=== PATIENT | male | born 1955 | race Caucasian/White ===

== ENCOUNTER 2024-10-10 09:08 | Outpatient (CLI) | payer MEDICARE, SELFPAY ==
--- OUTSIDE RECORDS SUMMARY | 2024-10-10 10:07 | XMS_ITS | Data Portability ---
Author Organization [facility] [employer] Address [address] [place] [address] Care Team Providers Care Sales Enablement Specialist Name Role Phone ALEJANDRA GARBER Director Of Nurses Registry Assessment Encounter Date Assessment Date Assessment LastModified by Organization Details LastModified Time 06/01/2023 06/01/2023 Patient presented for follow up. Studies ordered as below. Discussed plan with patient/careg iver, who expressed understanding . Follow up as noted below. Not available 06/01/2023 14:07:30 06/27/2023 06/27/2023 Patient presented for follow up. Studies ordered as below. Discussed plan with patient/careg iver, who expressed understanding . Follow up as noted below. Not available 06/27/2023 15:26:04 08/02/2023 08/02/2023 Patient presented for follow up. Studies ordered as below. Discussed plan with patient/careg iver, who expressed understanding . Follow up as noted below. Not available 08/02/2023 12:58:43 10/04/2023 10/04/2023 Patient presented for follow up. Studies ordered as below. Discussed plan with patient/careg iver, who expressed understanding . Follow up as noted below. Not available 10/04/2023 18:27:07 03/20/2024 03/20/2024 Patient presented for follow up. Studies ordered as below. Discussed plan with patient/careg iver, who expressed understanding . Follow up as noted below. Not available 03/20/2024 17:02:47 Plan of Treatment Reminders Order Date Submit Date Provider Last Modified By Organization Details Last Modified Time Details Appointments ESTABLISH ED PATIENT 15 2024 09:00A M Mele Crump MD Not available Not available Not available Lab hemoglobi n A1C/hemog lobin total, QN, blood 2022 024 Not available 11/03/2023 14:44:14 BMP, serum or plasma 2022 023 BLADIMIR Not available 08/03/2023 14:44:43 lipid panel, blood 2022 024 Not available 11/03/2023 14:44:14 CMP, serum or plasma 2022 024 Not available 11/03/2023 14:44:14 PSA, serum or plasma 2022 023 BLADIMIR Not available 08/03/2023 14:44:43 microalbu min/creat inine, mass ratio, urine 2022 024 Not available 11/03/2023 14:44:15 Referral cardiolog ist referral [address] [facility], [address], [address], 08/31/2023 14:42:41 Procedures None recorded. Surgeries None recorded. Imaging None recorded. Medication Orders tobramyci n 0.3 % eye drops 2023 024 [facility]acy #[id number], [address] [place], [address], 03/20/2024 17:27:37 metformin ER 500 mg tablet,ex tended release 24 hr [address]/Pharmacy #9650, [address] [place], [address], 08/02/2023 13:03:07 valacyclo vir 1 gram tablet [address]/Pharmacy #9170, [address] [place] [address], [address], 08/02/2023 13:04:24 Horizant ER 600 mg tablet,ex tended release 2022 023 [address] [place] [address], [address], 08/02/2023 13:03:03 valacyclo vir 1 gram tablet 2022 023 [facility] [address] [place] [address], [id number], 06/27/2023 15:39:52 Horizant ER 600 mg tablet,ex tended release 2022 023 [address], [address] [place] [address], [id number], 06/27/2023 15:39:48 metformin ER 500 mg tablet,ex tended release 24 hr 2022 023 [facility] [address] [place] [address], [address], 06/27/2023 15:39:51 Patient TargetsNo targets recorded. Patient Instructions Encounter Date Encounter Id Patient Instructions Last Modified By Organization Details Last Modified Time 06/27/2023 [id number] advised to lose weight Not available 06/27/2023 15:39:48 08/02/2023 [id number] advised to lose weight Not available 08/02/2023 13:03:03 03/20/2024 [id number] advised to lose weight Not available 03/20/2024 17:27:28 Reason for Referral Director Of Nurses Registry Referral for At herosclerosis of aorta Referring Physician: Mele Crump, Internal Medicine, Encounter Date: 06/01/2023 Results Created Date Observation Date Name Description Value Unit Range Abnormal Flag Note LastModifiedBy Organization Detail LastModifiedTime 05/04/20 23 05/04/2023 UA REFLE X TO CULTU RE specimen type URINE, UNSPEC IFIED Not Available [facility] (Lab) [address], [place], [address], 05/04/2023 10:21:21 05/04/2005/04/2023 UA REFLE X TO CULTU RE color COLORL ESS Not Available [facility] (Lab) [address], [place], [address], 05/04/2023 10:21:21 05/04/20 23 05/04/2023 UA REFLE X TO CULTU RE clarity CLEAR Not Available [facility] (Lab) [address], [place], [address], 05/04/2023 10:21:21 05/04/20 23 05/04/2023 UA REFLE X TO CULTU RE specific gravity 1.004 1.001- 1.030 Not Available [facility] (Lab) [address] [facility], [place], [address], 05/04/2023 10:21:21 05/04/20 23 05/04/2023 UA REFLE X TO CULTU RE pH, urine 7.0 5.0-9. 0 Not Available [facility] (Lab) [address] [facility], [place], [address], 05/04/2023 10:21:21 05/04/20 23 05/04/2023 UA REFLE X TO CULTU RE leukocytes NEGATI VE neg Not Available [facility] (Lab) [address] [facility], [place], [address], 05/04/2023 10:21:21 05/04/20 23 05/04/2023 UA REFLE X TO CULTU RE nitrite NEGATI VE neg Not Available [facility] (Lab) [address] [facility], [place], [address], 05/04/2023 10:21:21 05/04/20 23 05/04/2023 UA REFLE X TO CULTU RE protein NEGATI VE mg/dL <30 Not Available [facility] (Lab) [address] [facility], [place], [address], 05/04/2023 10:21:21 05/04/20 23 05/04/2023 UA REFLE X TO CULTU RE glucose NORMAL mg/dL norm Not Available [facility] (Lab) [place], [address], 05/04/2023 10:21:21 05/04/20 23 05/04/2023 UA REFLE X TO CULTU RE ketone NEGATI VE mg/dL neg Not Available [facility] (Lab) [address], [place], [address], 05/04/2023 10:21:21 05/04/20 23 05/04/2023 UA REFLE X TO CULTU RE urobilinogen NORMAL mg/dL norm Not Available [facility] (Lab) [address], [place], [address], 05/04/2023 10:21:21 05/04/20 23 05/04/2023 UA REFLE X TO CULTU RE bilirubin NEGATI VE mg/dL neg Not Available [facility] (Lab[place], [address], 05/04/2023 10:21:21 05/04/20 23 05/04/2023 UA REFLE X TO CULTU RE blood NEGATI VE neg Not Available [facility] (Lab) [place], [address], 05/04/2023 10:21:21 05/04/20 23 05/04/2023 UA REFLE X TO CULTU RE culture indicated CULTUR E IS NOT INDICA RIGOBERTO Not Available [facility] (Lab) [place], [address], 05/04/2023 10:21:21 05/04/20 23 05/04/2023 UA REFLE X TO CULTU RE RBC 1 /hpf <6 Not Available [facility] (Lab) One [facility], [place], [address], 05/04/2023 10:21:21 05/04/20 23 05/04/2023 HEMOG LOBIN A1C HGBA1C 6.4 % 4.0-6. 0 high Not Available [facility] (Main Location) [facility] ,, [place], [address], 05/05/2023 14:34:21 05/04/20 23 05/04/2023 AMYLA SE, SERUM amylase, serum 55 U/L 28-100 Not Available [facility] (Main Location) [address] ,, [place], [address], 05/05/2023 14:34:21 05/04/20 23 05/04/2023 CMP (COMP REHEN SIVE METAB OLIC PANEL ) glucose 118 mg/dL 74-99 high Not Available [facility] (Main Location) [address] ,, [place], [address], 05/05/2023 14:34:22 05/04/20 23 05/04/2023 CMP (COMP REHEN SIVE METAB OLIC PANEL ) urea nitrogen, blood (BUN) 18 mg/dL 8-23 Not Available [facility] (Main Location) [address] ,, [place], [address], 05/05/2023 14:34:22 05/04/20 23 05/04/2023 CMP (COMP REHEN SIVE METAB OLIC PANEL ) total bilirubin 1.1 mg/dL 0.0-1. 2 Not Available [facility] (Main Location) [address] [place], [place] [address] ,, [place], [address], 05/05/2023 14:34:22 05/04/20 23 05/04/2023 CMP (COMP REHEN SIVE METAB OLIC PANEL ) total protein 7.4 g/dL 6.6-8. 7 Not Available [facility] (Main Location) [address] [place], [place] [address] ,, [place], [address], 05/05/2023 14:34:22 05/04/20 23 05/04/2023 CMP (COMP REHEN SIVE METAB OLIC PANEL ) alanine aminotransfe rase (ALT) 22 U/L 0-41 Not Available [facility] (Main Location) [address] [place], [place] [address] ,, [place], [place], [address], 05/05/2023 14:34:22 05/04/20 23 05/04/2023 CMP (COMP REHEN SIVE METAB OLIC PANEL ) alkaline phosphatase 71 U/L 40-130 Not Available [facility] (Main Location) [address] [place], [place] [address] ,, [place], [address], 05/05/2023 14:34:22 05/04/20 23 05/04/2023 CMP (COMP REHEN SIVE METAB OLIC PANEL ) aspartate aminotransfe rase (AST) 18 U/L 0-40 Not Available [facility] (Main Location) [address] [place], [place] [address] ,, [place], [address], 05/05/2023 14:34:22 05/04/20 23 05/04/2023 CMP (COMP REHEN SIVE METAB OLIC PANEL ) calcium 9.8 mg/dL 8.6-10 .2 Not Available [facility] (Main Location) [address] [place], [place] [address] ,, [place], [address], 05/05/2023 14:34:22 05/04/20 23 05/04/2023 CMP (COMP REHEN SIVE METAB OLIC PANEL ) albumin 4.5 g/dL 3.5-5. 2 Not Available [facility] (Main Location) [facility] [address] ,, [place], [address], 05/05/2023 14:34:22 05/04/20 23 05/04/2023 CMP (COMP REHEN SIVE METAB OLIC PANEL ) CO2 32 mmol/ L 23-31 high Not Available [facility] (Main Location) [address] [place], [place] [address] ,, [place], [address], 05/05/2023 14:34:22 05/04/20 23 05/04/2023 CMP (COMP REHEN SIVE METAB OLIC PANEL ) creatinine, serum 0.8 mg/dL 0.7-1. 2 Not Available [facility] (Main Location) [facility] [address] ,, [place], [address], 05/05/2023 14:34:22 05/04/20 23 05/04/2023 CMP (COMP REHEN SIVE METAB OLIC PANEL ) sodium, serum 142 mmol/ L 136-14 5 Not Available [facility] (Main Location) [address] [place], [place] [address] ,, [place], [address], 05/05/2023 14:34:22 05/04/20 23 05/04/2023 CMP (COMP REHEN SIVE METAB OLIC PANEL ) potassium, serum 4.8 mmol/ L 3.5-5. 1 Not Available [facility] (Main Location) [facility] [address] ,, [place], [address], 05/05/2023 14:34:22 05/04/20 23 05/04/2023 CMP (COMP REHEN SIVE METAB OLIC PANEL ) chloride, serum 100 mmol/ L 98-107 Not Available [facility] (Main Location) [facility] [address] ,, [place], [address], 05/05/2023 14:34:22 05/04/20 23 05/04/2023 CMP (COMP REHEN SIVE METAB OLIC PANEL ) eGFR 97 >59 Persi stent reduc tion for 3 month s or more in an eGFR <60 mL/mi n/1.7 3 m2 defin es CKD. Patie nts with eGFR value s>/=6 0 mL/mi n/1.7 3 m2 may also have CKD if evide nce of persi stent protu venessa a is prese nt. Addit ional infor samira n may be found at www.k doqi. org. Not Available [facility] (Main Location) [address] ,, [place], [address], 05/05/2023 14:34:22 05/04/20 23 05/04/2023 LIPAS E lipase 26 U/L 13-60 Not Available [facility] (Main Location) [address] ,, [place], [address], 05/05/2023 14:34:22 05/04/20 23 05/04/2023 LIPID PANEL trigylceride s 79 mg/dL 0-150 Not Available [facility] (Main Location) [address] ,, [place], [address], 05/05/2023 14:34:23 05/04/20 23 05/04/2023 LIPID PANEL cholesterol 105 mg/dL 0-200 Not Available [facility] (Main Location) [address] ,, [place], [address], 05/05/2023 14:34:23 05/04/20 23 05/04/2023 LIPID PANEL uhdl 39 mg/dL 35-55 Not Available [facility] (Main Location) [address] ,, [place], [address], 05/05/2023 14:34:23 05/04/20 23 05/04/2023 LIPID PANEL LDL, calculated 50 mg/dL 0-100 Not Available [facility] (Main Location) [address] ,, [place], [address], 05/05/2023 14:34:23 05/04/20 23 05/04/2023 LIPID PANEL LDL/HDL ratio 1 mg/dL 0-5 Not Available [facility] (Main Location) [address] ,, [place], [address], 05/05/2023 14:34:23 05/04/20 23 05/04/2023 LIPID PANEL VLDL 15.8 mg/dL 5.0-40 .0 Not Available [facility] (Main Location) [address] ,, [place], [address], 05/05/2023 14:34:23 05/04/20 23 05/04/2023 LIPID PANEL cholesterol/ HDL ratio 2.69 0.00-5 .00 Not Available [facility] (Main Location) [address] ,, [place], [address], 05/05/2023 14:34:23 05/04/20 23 05/04/2023 COMPL ETE CBC W/AUT O DIFF WBC white blood cell count 9.1 thous and/u L 3.5-10 .0 Not Available [facility] (Main Location) [address] ,, [place], [address], 05/05/2023 14:34:23 05/04/20 23 05/04/2023 COMPL ETE CBC W/AUT O DIFF WBC red blood cell count 5.3 walker on/uL 3.5-5. 5 Not Available [facility] (Main Location) [address] ,, [place], [address], 05/05/2023 14:34:23 05/04/20 23 05/04/2023 COMPL ETE CBC W/AUT O DIFF WBC hemoglobin 15.3 g/dL 11.5-1 6.5 Not Available [facility] (Main Location) [address] ,, [place], [address], 05/05/2023 14:34:23 05/04/20 23 05/04/2023 COMPL ETE CBC W/AUT O DIFF WBC hematocrit 49 % 35-55 Not Available [facility] ,, [place], [address], 05/05/2023 14:34:23 05/04/20 23 05/04/2023 COMPL ETE CBC W/AUT O DIFF WBC MCH 29 pg 25-35 Not Available [facility] [address] ,, [place], [address], 05/05/2023 14:34:23 05/04/20 23 05/04/2023 COMPL ETE CBC W/AUT O DIFF WBC MCHC 31 g/dL 31-38 Not Available [facility]Main [facility] [address] ,, [place], [address], 05/05/2023 14:34:23 05/04/20 23 05/04/2023 COMPL ETE CBC W/AUT O DIFF WBC MCV 93 fL 75-100 Not Available [facility]Main [facility] [address] ,, [place], [address], 05/05/2023 14:34:23 05/04/20 23 05/04/2023 COMPL ETE CBC W/AUT O DIFF WBC RDW-CV 14 % 11-15 Not Available [facility]Main [facility] [address] ,, [place], [address], 05/05/2023 14:34:23 05/04/20 23 05/04/2023 COMPL ETE CBC W/AUT O DIFF WBC neutrophils% 69.6 % Not Available [facility] ,, [place], [address], 05/05/2023 14:34:23 05/04/20 23 05/04/2023 COMPL ETE CBC W/AUT O DIFF WBC lymphocytes% 21.4 % Not Available [facility] (Main [facility] ,, [place], [address], 05/05/2023 14:34:23 05/04/20 23 05/04/2023 COMPL ETE CBC W/AUT O DIFF WBC monocytes% 7.4 % Not Available [facility] (Main Location) [address] ,, [place], [address], 05/05/2023 14:34:23 05/04/20 23 05/04/2023 COMPL ETE CBC W/AUT O DIFF WBC eosinophil % 0.7 % 0.0-7. 0 Not Available [facility]Main [facility] [address] ,, [place], [address], 05/05/2023 14:34:23 05/04/20 23 05/04/2023 COMPL ETE CBC W/AUT O DIFF WBC basophil % 0.6 % 0.0-3. 0 Not Available [facility]Main [facility] [address] ,, [place], [address], 05/05/2023 14:34:23 05/04/20 23 05/04/2023 COMPL ETE CBC W/AUT O DIFF WBC absolute neutrophils 6.3 cells /uL 1.5-7. 8 Not Available [facility] (Main Location) [address] ,, [place], [address], 05/05/2023 14:34:23 05/04/20 23 05/04/2023 COMPL ETE CBC W/AUT O DIFF WBC absolute lymphocytes 1.94 cells /uL 0.85-3 .90 Not Available [facility] (Main Location) [address] ,, [place], [address], 05/05/2023 14:34:23 05/04/20 23 05/04/2023 COMPL ETE CBC W/AUT O DIFF WBC absolute monocytes 0.7 cells /uL 0.2-1. 0 Not Available [facility] [address] ,, [place], [address], 05/05/2023 14:34:23 05/04/20 23 05/04/2023 COMPL ETE CBC W/AUT O DIFF WBC absolute eosinophils 0.1 cells /uL 0.0-0. 5 Not Available [facility] (Main [facility] [address] ,, [place], [address], 05/05/2023 14:34:23 05/04/20 23 05/04/2023 COMPL ETE CBC W/AUT O DIFF WBC absolute basophils 0.1 cells /uL 0.0-0. 2 Not Available [facility] (Main [facility] [address] ,, [place], [address], 05/05/2023 14:34:23 05/04/20 23 05/04/2023 COMPL ETE CBC W/AUT O DIFF WBC platelet count 297 thous and/u L 100-40 0 Not Available [facility]Main [facility] ,, [place], [address], 05/05/2023 14:34:23 05/04/20 23 05/04/2023 HEMOG LOBIN A1C HGBA1C 6.4 % 4.0-6. 0 high Not Available [facility]Main [facility] [address] ,, [place], [address], 05/05/2023 14:34:27 05/04/20 23 05/04/2023 H PYLOR I BREAT H TEST H pylori breath test 0.8 % Not Available [facility] (Main Location[facility] [address] ,, [place], [address], 05/10/2023 12:30:41 05/04/20 23 05/04/2023 H PYLOR I BREAT H TEST H pylori breath test NEGATI VE negati ve Comme nt for H PYLOR I BREAT H TEST Inter preta tion: Negat dickson: <3.0% Posit dickson: >=3.0 % [facility] [address] [place] [address] Labor atory Direc tor: Alexa ReevesIA# [id number] Not Available [facility] (Main Location) [address] ,, [place], [address], 05/10/2023 12:30:41 05/04/20 23 05/04/2023 H PYLOR I BREAT H TEST H pylori breath test 0.8 % Not Available [facility] (Main Location) [address] ,, [place], [address], 05/10/2023 12:30:43 05/04/20 23 05/04/2023 H PYLOR I BREAT H TEST H pylori breath test NEGATI VE negati ve Comme nt for H PYLOR I BREAT H TEST Inter preta tion: Negat dickson: <3.0% Posit dickson: >=3.0 % [facility] [address] [place] [address] Labor atory Dire tor: Alexa ReevesIA# [id number] Not Available [facility]Main Location[facility] [address] ,, [place], [address], 05/10/2023 12:30:43 08/02/20 23 08/02/2023 BASIC METAB OLIC PANEL (BMP) glucose 118 mg/dL 74-99 high Not Available [facility] (Main Location) [address] ,, [place], [address], 08/03/2023 14:44:42 08/02/20 23 08/02/2023 BASIC METAB OLIC PANEL (BMP) urea nitrogen, blood (BUN) 18 mg/dL 8-23 Not Available [facility] (Main Location) [address] ,, [place], [address], 08/03/2023 14:44:42 08/02/20 23 08/02/2023 BASIC METAB OLIC PANEL (BMP) calcium 9.2 mg/dL 8.6-10 .2 Not Available [facility] (Main Location[facility] ,, [place], [address], 08/03/2023 14:44:42 08/02/20 23 08/02/2023 BASIC METAB OLIC PANEL (BMP) CO2 34 mmol/ L 23-31 high Not Available [facility] (Main Location) [facility] [address] ,, [place], [address], 08/03/2023 14:44:42 08/02/20 23 08/02/2023 BASIC METAB OLIC PANEL (BMP) creatinine, serum 0.8 mg/dL 0.7-1. 2 Not Available [facility] (Main Location) [facility] [address] ,, [place], [address], 08/03/2023 14:44:42 08/02/20 23 08/02/2023 BASIC METAB OLIC PANEL (BMP) sodium, serum 141 mmol/ L 136-14 5 Not Available [facility] (Main Location) [facility] [address] ,, [place], [address], 08/03/2023 14:44:42 08/02/20 23 08/02/2023 BASIC METAB OLIC PANEL (BMP) potassium, serum 5.1 mmol/ L 3.5-5. 1 Not Available [facility] (Main Location) [facility] [address] ,, [place], [address], 08/03/2023 14:44:42 08/02/20 23 08/02/2023 BASIC METAB OLIC PANEL (BMP) chloride, serum 99 mmol/ L 98-107 Not Available [facility] (Main Location) [facility] [address] ,, [place], [address], 08/03/2023 14:44:42 08/02/20 23 08/02/2023 BASIC METAB OLIC PANEL (BMP) eGFR 97 >59 Persi stent reduc tion for 3 month s or more in an eGFR <60 mL/mi n/1.7 3 m2 defin es CKD. Patie nts with eGFR value s>/=6 0 mL/mi n/1.7 3 m2 may also have CKD if evide nce of persi stent protu niuri a is prese nt. Addit ional infor samira justin may be found at www.k doqi. org. Not Available [facility] (Main Location) [address] ,, [place], [address], 08/03/2023 14:44:42 08/02/20 23 08/02/2023 PROST ATE-S PECIF IC ANTIG EN (PSA) SCREE N PSA, total 1.2 NG/mL 0.0-4. 0 PSA is an elect ashley milum inesc ence immun oassa y run on the Ashley Tanya 6000. Not Available [facility] (Main Location) [address] ,, [place], [address], 08/03/2023 14:44:43 05/26/20 23 05/22/2023 CT, abdom en + pelvi s, w/ contr ast No observ ation record ed. [facility] [address], [place], [address], 06/01/2023 14:24:36 06/19/20 CT ABD+p el wo [facility] [address] [place] [address] Orderi ng Provid er: FLIP ASCENCIO ON INDICA TION: Kidney stones , flank pain DOSE OPTIMI ZATION : This facili ty uses dose optimi zation techni ques as approp riate to perfor m exams, includ ing at least one of the follow ing techni ques: 1. Automa rigoberto exposu re contro l. 2. Adjust ment of the mA and/or kV accord ing to patien t size (this includ es techni ques or standa rdized protoc ols for target ed exams where dose is matche d to the indica tion/r roger for exam, i.e. extrem ities or head). 3. Use of iterat dickson recons tructi ve techni que. TECHNI QUE: CT abdome n and pelvis was perfor med withou t IV contra st COMPAR AVINASH: None FINDIN GS: Mild atelec tasis or scarri ng in the right lung base with elevat ion hemidi aphrag m is noted. Vazquez ry arteri al calcif icatio ns are noted. For this noncon trast CT the liver, spleen , adrena l glands , and pancre as are within normal limits . There is a gallst one in the gallbl adder withou t wall thicke matti or perich olecys tic fluid. No bladde r calcul i is apprec iated. No hydron ephros is or hydrou reter is noted. No renal calcul i are seen. No free fluid the pelvis is noted. There are coloni c divert iculi with mild strand ing seen. No proxim al disten tion is noted. The presen ce of stool, lack of oral contra st, lack of disten tion limit evalua tion. The append ix is visual ized and within normal limits . No small bowel disten tion is seen. There is a left inguin al fat hernia . Vascul ar calcif icatio ns are noted. No periao rtic lympha denopa thy by size criter ia is noted. There are degene rative change s in the spine and ankylo sis in the spine. There is a nonspe cific hypoat tenuat ing area seen in the L1 verteb ra althou gh there does appear to be some trabec ular thicke matti sugges tive of an artis ioma in a patien t withou t myelom atous proces s or neopla stic proces s. There are degene rative change s in the pelvis seen. There is irregu larity seen at the sacroi liac joints and sacral ileiti s may be presen t. IMPRES HAI: 1. Mild divert iculit is withou t eviden ce of absces s or obstru ction 2. No renal calcul i, hydron ephros is, or hydrou reter 3. Cholel ithias is withou t eviden ce cholec ystiti s 4. Elevat ed hemidi aphrag m, degene rative change s and bony irregu lariti es at the sacroi liac joints , and athero sclero tic change s as above includ ing vazquez ry arteri al calcif icatio ns. Referr ed By: Electr onical ly Signed By: Dudley Ladd MD on 2022 12:07 AM Interp reted By: Dudley Ladd MD, 2022 12:[address] [place], [address], 06/27/2023 15:40:03 07/21/[address] ABD+p el W con [facility] [place] [place] [address] Orderi ng Provid er: ANA LILIA ACUÑA N IMAGIN G STUDIE S: CT ABD+PE L W CON DATE: 2022 1:51 PM CLINIC AL HISTOR Y: LLQ abdomi nal pain . FINDIN GS: 1. Routin e CT of the abdome n and pelvis with contra st. Compar avinash 2022. IV admini strati on of 100 cc's of isovue 370. . Radiat ion dose reduct ion techni que was utiliz ed. 2. Multip le sigmoi d divert iculi with modera te mucosa l thicke matti and adjace nt fatty infilt ration consis tent with acute divert iculit is. Small amount of free fluid in the pelvis . No absces s. No free air. 3. No renal calcul i or hydron ephros is. Normal append ix. Gallbl adder calcul i withou t inflam mation . 4. Mild fatty infilt ration of the liver withou t mass. All other visual ized viscer al struct ures are within normal limits .. 5. Modera te stool in proxim al colon withou t obstru ction. .Ather oscler otic normal -sized aorta. No pathol ogic lympha denopa thy.No ncompl icated small duoden al divert iculum . 6. Lung bases with stable mild scar format ion in the right lung base. No pleura l effusi on is stable 3 mm nodule within anteri or right lower lobe on image 19 of series 3. If high risk follow -up in one year.. Degene rative change in lumbar spine. Mild sclero sis which is stable , of the sacroi liac joint region . May be due to mild sacroi liitis . IMPRES HAI: 1. Acute divert iculit is with modera te mucosa l thicke matti of the sigmoi d colon. No bowel obstru ction. Small amount of reacti ve free fluid in the pelvis . No absces s. Ordere d By: ANA LILIA Justin Electr onical ly Signed By: Mimi Castro on 2022 2:52 PM Interp reted By: Mimi Castro , 2022 2:[address], [place], [address], 07/24/2023 12:30:36 08/31/19 24 ECG 12-le ad [facility] [place] [address] Orderi Provid er: RIMA KUMAR [facility] [place] [address], [place] Test Date: 08-31 Pat Name: NENA DIETRICH Depart ment: 40 Patien t ID: [id number] Room: [facility] Gender : Male Techni romain: Ar : 12-26 Reques rigoberto By: RIMA KUMAR Order Number : [id number] Keli isidro MD: Vince justin Measur ements Interv als [place] Rate: 67 P: 12 DC: 190 QRS: 18 QRSD: 138 T: 48 QT: 430 QTc: 454 Interp retive Statem ents SINUS RHYTHM INTRAV ENTRIC ULAR CONDUC TION DELAY [130+ ms QRS DURATI ON] Compar ed to ECG 2023 14:37: 25 No signif icant change s Electr onical ly signed by Vince justin at 08-31- 024 22:30: 38 REPRODUCTIVE ENDOCRINOLOGIST [address], [place], [address], 09/03/2023 22:10:03 09/04/19 24 XR, chest [facility] [place] [place] [address] Orderi ng Provid er: MUSTAF A BRIAN Portab le chest INDICA TION: Chest pain. COMPAR AVINASH: None. TECHNI QUE: Single AP chest film. FINDIN GS: Heart size and pulmon nathalie vascul ature are normal . There is a severe ly elevat ed right hemidi aphrag m. The left lung is clear. No pleura l fluid or pneumo thorax . Bony struct ures are unrema rkable . IMPRES HAI: Severe elevat ion of the right hemidi aphrag m. Otherw ise unrema rkable . Referr ed By: Lori onical ly Signed By: Wilson palmer MD on 024 1:28 AM Interp reted By: Wilson palmer MD, 024 1:[address] [facility], [place], [address], 09/11/2023 00:03:27 09/04/[address] ABD+p el W con [facility] [place] [address] Orderi ng Provid er: MUSTAF A BRIAN CT of the abdome n and pelvis with contra st INDICA TION: Acute abdomi nal pain. COMPAR AVINASH: 2022. TECHNI QUE: Axial, vazquez l and sagitt al images from the lung bases throug h the symphy sis with intrav enous contra st. Radiat ion dose reduct ion techni que(s) were used. FINDIN GS: There is severe elevat ion of the right hemidi aphrag m with some right basal atelec tasis. The left lung base is clear. Heart size is normal . Modera te vazquez ry artery calcif icatio n. There is an 8 mm calcul us near the gallbl adder neck. The gallbl adder is disten ded but no acute gallbl adder inflam matory change s are seen. The dome of the liver is not fully includ ed. Includ ed portio ns of the liver appear normal . The spleen , pancre as, adrena ls and left kidney appear normal . Tiny cyst noted at the lower pole of the right kidney . No hydron ephros is or ureter al calcul us. No upper abdomi nal or periao rtic adenop athy. There is aortoi liac calcif icatio n. Scans of the pelvis show no mass, lympha denopa thy or free fluid. No bladde r wall thicke matti or bladde r calcul us. The stomac h is modera tely disten ded with food and fluid. There is appare nt wall thicke matti in the gastri c antrum and distal body. This could be artifa ctual due to underd istent ion. I could not exclud e gastri tis. Small bowel loops are unrema rkable . No small bowel obstru ction. No free air. The append ix is normal . There is extens dickson coloni c divert icular diseas e withou t eviden ce for acute divert iculit is. Sigmoi d divert icula are shown on the prior study is no longer identi fied. No hernia s are identi fied. Spinal degene rative change s are noted. No acute bony abnorm ality. IMPRES HAI: Cholel ithias is and gallbl adder disten tion but no gallbl adder wall thicke matti or perich olecys tic inflam matory change s are seen to indica te acute cholec ystiti s. Severe ly elevat ed right hemidi aphrag m with right basal atelec tasis. Modera te vazquez ry artery calcif icatio n. Severe coloni c divert icular diseas e. Sigmoi d divert iculit is on the previo us study has since resolv ed. Referr ed By: Electr onical ly Signed By: Wilson palmer MD on 2:15 AM Interp reted By: Wilson palmer MD, 2:[address], [place], [address], 09/11/2023 00:03:15 09/04/19 24 ECG 12-le ad [facility] [place] [address] Orderi ng Provid er: MUSTAF A BRIAN [facility] [place] [address] [facility] [place], [place] Test Date: 09-04 Pat Name: NENA DIETRICH Depart ment: 41 Patien t ID: [id number] Room: [id number] Gender : Male Techni romain: : [birth year]26 Reques rigoberto By: VIV Bergeron Order Number : [id number] Keli isidro MD: Alberto Damon Measur ements Interv als [place] Rate: 75 P: 44 DC: 183 QRS: 22 QRSD: 126 T: 32 QT: 386 QTc: 434 Interp retive Statem ents SINUS RHYTHM MODERA TE INTRAV ENTRIC ULAR CONDUC TION DELAY [110+ ms QRS DURATI ON] Compar ed to ECG 2023 01:02: 07 No signif icant change s Electr onical ly signed by Alberto Damon at 09-04- 024 21:44: 49 REPRODUCTIVE ENDOCRINOLOGIST [address], [address], 09/04/2023 23:32:56 09/04/19 24 ECG 12-le ad [facility] [place] [place] [address] Orderi ng Provid er: MUSTAF A BRIAN [facility] [place] [address] [facility] [place] [place] Test Date: 09-04 Pat Name: NENA DIETRICH Depart ment: 41 Patien t ID: [id number] Room: [id number] Gender : Male Techni romain: : [birth year]-26 Reques rigoberto By: VIV Bergeron Order Number : [id number] Keli isidro MD: Alberto Damon Measur ements Interv als [place] Rate: 75 P: 44 DC: 183 QRS: 22 QRSD: 126 T: 32 QT: 386 QTc: 434 Interp retive Statem ents SINUS RHYTHM MODERA TE INTRAV ENTRIC ULAR CONDUC TION DELAY [110+ ms QRS DURATI ON] Compar ed to ECG 2023 01:02: 07 No signif icant change s Electr onical ly signed by Alberto Damon at 21:44: 49 REPRODUCTIVE ENDOCRINOLOGIST [address], [place], [address], 09/04/2023 23:32:56 09/04/19 24 ECG 12-le ad [facility] [place] [address] Orderi [facility] er: MUSTAF A BRIAN . [facility] [place] [address], [place] Test Date: 09-04 Pat Name: NENA DIETRICH Depart ment: 41 Patien t ID: [id number] Room: [facility] Gender : Male Techni romain: 77 : [birth year]-26 Reques rigoberto By: VIV Bergeron Order Number : [id number] Keli isidro MD: Alberto Damon Measur ements Interv als [place] Rate: 86 P: 60 DC: 183 QRS: 38 QRSD: 116 T: 31 QT: 374 QTc: 449 Interp retive Statem ents SINUS RHYTHM MODERA TE INTRAV ENTRIC ULAR CONDUC TION DELAY [110+ ms QRS DURATI ON] Compar ed to ECG 2023 12:50: 56 No signif icant change s Electr onical ly signed by Alberto Damon at 21:45: 03 REPRODUCTIVE ENDOCRINOLOGIST [address], [place], [address], 09/04/2023 23:32:57 09/04/19 24 ECG 12-le ad [facility] S [facility] [place] [address] Orderi ng Provid er: MUSTAF A BRIAN . [facility] [place] [address] [place], [place] Test Date: 09-04 Pat Name: NENA Charles ment: 41 Patien t ID: [id number] Room: [facility] Gender : Male Techni romain: 77 : 12-26 Reques rigoberto By: VIV Bergeron Order Number : [id number] Keli isidro MD: Alberto Damon Measur ements Interv als [place] Rate: 86 P: 60 DC: 183 QRS: 38 QRSD: 116 T: 31 QT: 374 QTc: 449 Interp retive Statem ents SINUS RHYTHM MODERA TE INTRAV ENTRIC ULAR CONDUC TION DELAY [110+ ms QRS DURATI ON] Compar ed to ECG 2023 12:50: 56 No signif icant change s Electr onical ly signed by Alberto Damon at 024 21:45: 03 REPRODUCTIVE ENDOCRINOLOGIST [facility] [address] [facility], [place], [address], 09/04/2023 23:32:57 Result Notes None recorded. Problems Name Problem SNOMED Code Status Onset Date Resolution Date Notes Provider Name and Address Organization Details Recorded Time Gastroesop hageal reflux disease 590132022 Active Not Available [facility] 3 16:58:06 Benign essential hypertensi on 3376763 Active Not Available [facility] 3 16:58:06 Obesity 091391367 Active Not Available [facility] 3 16:58:06 Allergic rhinitis 38247407 Active Not Available [facility] 3 16:58:06 Hyperglyce lara 22912852 Active Not Available [facility] 3 16:58:06 Acute purulent bronchitis 671635850 Active 2022 Not Available [facility] 3 16:58:06 Essential hypertensi on 39603500 Active 2022 Not Available [facility] 3 16:58:06 Gastroesop hageal reflux disease without esophagiti s 424679344 Active 2022 Not Available [facility] 3 16:58:06 COVID-19 568748555 Active 2022 Not Available [facility] 3 16:58:06 Hyperlipid emia 32029846 Active 2022 Not Available [facility] 3 16:58:06 Hepatomega ly 55107368 Active 2022 Not Available [facility] 3 16:58:06 Atypical chest pain 937222666 Active 2022 Not Available [facility] 3 16:58:06 Impaired glucose tolerance 1449215 Active 2022 Not Available [facility] 3 16:58:06 Left upper quadrant pain 279196665 Active 2022 Not Available [facility] 3 16:58:06 Upper abdominal pain 92510128 Active 2022 Not Available [facility] 3 16:58:06 Type 2 diabetes mellitus without complicati on 497637524 Active 2022 Not Available [facility] 3 16:58:06 Atheroscle rosis of aorta 43816807 Active 2022 Not Available [facility] 3 16:58:06 Obstructiv e sleep apnea of adult 2585831201618 Active 2022 Not Available [facility] 3 16:58:06 Herpes zoster 5872615 Active 2022 Not Available [facility] 3 16:58:06 Problem Notes None recorded. Procedures Surgical History Date Name Laterality Status Provider Name and Address Organization Details Recorded Time 03/03/20 20 arthroscopy completed Mele Crump MD [address], [place], [address], [facility] 03/30/2020 14:26:03 10/23/19 14 Colonoscopy completed Terri Ledezma [facility] 06/12/2018 11:11:32 cardiac catheterization completed MD [address], [place], [address], [place] [facility] 10/04/2023 18:25:45 Shoulder joint surgery completed Mele Crump MD [address], [place], [address], [place] [facility] 03/10/2017 09:32:17 Imaging Results Imaging Date Name Status LastModified by Organiz ation Details LastModified Time 05/22/2023 CT, abdomen + pelvis, w/ contrast completed [address] [facility] [address], [place], [address], 06/01/2023 14:24:36 06/19/2023 CT ABD+pel wo con completed [address], [address], 06/27/2023 15:40:03 07/21/2023 CT ABD+pel W con completed [address], [address], 07/24/2023 12:30:36 08/31/2023 ECG 12-lead completed [address], [address], 09/03/2023 22:10:03 09/04/2023 XR, chest completed [address], [address], 09/11/2023 00:03:27 09/04/2023 CT ABD+pel W con completed [address], [address], 09/11/2023 00:03:15 09/04/2023 ECG 12-lead completed [address] [facility], [place], [address], 09/04/2023 23:32:56 09/04/2023 ECG 12-lead completed [address] [facility], [place], [address], 09/04/2023 23:32:56 09/04/2023 ECG 12-lead completed [address] [facility], [place], [address], 09/04/2023 23:32:57 09/04/2023 ECG 12-lead completed [address] [facility], [place], [address], 09/04/2023 23:32:57 Procedure Notes None recorded. Medical Equipment None Reported. Allergies Allergen ID Allergen Name Allergen Category Reaction Reaction Severity Criticality Documentation Date Start Date Code Code System Note Provider Name and Address Organization Details Recorded Time 5268 amlodipin e medicatio n Not available Not available Not available 12/08/2016 27588 RxNorm -- facia l rash, numbn ess & tingl ing in left shoul vj and left arm. Mele Crump MD [address], [place], [address], [facility] 7 09:49:15 7537 rosuvasta tin medicatio n Not available Not available Not available 05/30/2018 03499 2 RxNorm -- yung ed to Lival o 2 mg as Rosuv astat in cause s GI upset . Mele Crump MD [address], [place], [address], [facility] 8 19:16:52 Medications Name Sig Start Date Stop Date Status Note LastModified by Organization Details LastModified Time amoxicill in 500 mg capsule 03/24 completed Not Available Not Available Not Available atorvasta tin 80 mg tablet TAKE 1 TABLET BY MOUTH NIGHTLY AT BEDTIME. active Not Available Not Available No t Available atorvasta tin 20 mg tablet TAKE 1 TABLET BY MOUTH EVERY DAY active Not Available Not Available No t Available atorvasta tin 10 mg tablet active Not Available Not Available Not Available benzonata te 200 mg capsule 03/24 completed Not Available Not Available Not Available valacyclo vir 1 gram tablet Take 1 tablet 3 times a day by oral route. 2022 active Not Available Not Available Not Avai lable hydrocodo ne 5 mg-acetam inophen 325 mg tablet TAKE 1 TABLET BY MOUTH EVERY 6 HOURS NEEDED FOR ACUTE PAIN FOR 3 DAY SUPPLY active Not Available Not Available No t Available flurbipro fen 0.03 % eye drops 1 DROP 3X PER DAY INTO SURGICAL EYE, STARTING AFTER SURGERY, CONTINUE FOR 3 WEEKS active Not Available Not Available No t Available lisinopri l 20 mg tablet TAKE 2 TABLETS (40 MG TOTAL) BY MOUTH EVERY EVENING. active Not Available Not Available No t Available ondansetr on HCl 4 mg tablet TAKE 1 TABLET BY MOUTH 1 HOUR PRIOR TO PROCEDUR E 05/24 completed Not Available Not Available Not Available Zithromax Z-Ramin 250 mg tablet TAKE 2 TABLETS (500 MG) BY ORAL ROUTE ONCE DAILY FOR 1 DAY THEN 1 TABLET (250 MG) BY ORAL ROUTE ONCE DAILY FOR 4 DAYS 01/05 completed Not Available Not Available Not Available metronida zole 500 mg tablet TAKE 1 TABLET BY MOUTH 3 TIMES DAILY FOR 7 DAYS. 08/02 completed Not Available Not Available Not Available clopidogr el 75 mg tablet TAKE 1 TABLET BY MOUTH EVERY DAY active Not Available Not Available No t Available amlodipin e 5 mg tablet Take 1 tablet every day by oral route. 03/10 completed -- rash Not Available Not Available Not Available ciproflox acin 500 mg tablet TAKE 1 TABLET BY MOUTH TWICE A DAY FOR 10 DAYS 08/02 completed Not Available Not Available Not Available Tamiflu 75 mg capsule Take 1 capsule twice a day by oral route. 06/12 completed Not Available Not Available Not Available hydrocodo ne 10 mg-acetam inophen 325 mg tablet 03/24 completed Not Available Not Available Not Available peg-elect rolyte solution 420 gram oral solution TAKE 4,000 ML'S BY MOUTH ONCE FOR 1 DOSE active Not Available Not Available No t Available omeprazol e 40 mg capsule,d elayed release TAKE 1 CAPSULE BY MOUTH TWICE A DAY active Not Available Not Available No t Available aspirin 81 mg tablet,de layed release TAKE 1 TABLET BY MOUTH EVERY DAY 2020 active Not Available Not Available Not Avai lable acetamino phen 500 mg tablet TAKE 1 TABLET BY MOUTH EVERY 6 HOURS NEEDED FOR PAIN. active Not Available Not Available No t Available ketorolac 10 mg tablet 03/24 completed Not Available Not Available Not Available prednisol one acetate 1 % eye drops,riky pension 1 DROP 3X PER DAY INTO SURGICAL EYE, STARTING 4 HOURS AFTER SURGERY, CONTINUI NG FOR 3 WEEKS. active Not Available Not Available No t Available dicyclomi ne 20 mg tablet TAKE 1 TABLET BY MOUTH EVERY 6 HOURS. active Not Available Not Available No t Available tobramyci n 0.3 % eye drops INSTILL 1 DROP INTO AFFECTED EYE(S) BY OPHTHALM IC ROUTE EVERY 4 HOURS active Not Available Not Available No t Available metronida zole 0.75 % topical cream APPLY TO AFFECTED AREA TWICE A DAY NEEDED FOR FLARES 05/24 completed Not Available Not Available Not Available hydrochlo rothiazid e 25 mg tablet TAKE 1 TABLET BY MOUTH EVERY DAY active Not Available Not Available No t Available metoprolo l succinate ER 25 mg tablet,ex tended release 24 hr TAKE 1 TABLET BY MOUTH EVERY DAY IN THE EVENING active Not Available Not Available No t Available clobetaso l 0.05 % topical ointment 03/30 completed Not Available Not Available Not Available lisinopri l 10 mg-hydroc hlorothia zide 12.5 mg tablet 05/31 completed Not Available Not Available Not Available levofloxa herve 750 mg tablet TAKE 1 TABLET BY MOUTH EVERY DAY FOR 6 DAYS 08/02 completed Not Available Not Available Not Available methylpre dnisolone 4 mg tablets in a dose pack as directed 05/31 completed Not Available Not Available Not Available doxycycli ne hyclate 20 mg tablet TAKE 1 TABLET BY MOUTH TWICE A DAY active Not Available Not Available No t Available cefdinir 300 mg capsule TAKE 1 CAPSULE BY MOUTH EVERY 12 HOURS active Not Available Not Available No t Available fluticaso ne propionat e 50 mcg/actua tion nasal spray,riky pension Inhale 2 spray(s) every day by intranas al route for 30 days. 2021 active Not Available Not Available Not Avai lable metformin ER 500 mg tablet,ex tended release 24 hr TAKE 1 TABLET BY MOUTH EVERY DAY 2024 active Not Available Not Available Not Avai lable diazepam 5 mg tablet TAKE 3 TABLETS BY MOUTH 1 HOUR PRIOR TO PROCEDUR E active Not Available Not Available No t Available amoxicill in 875 mg-potass ium clavulana te 125 mg tablet TAKE 1 TABLET BY MOUTH EVERY 12 HOURS FOR 10 DAYS 05/24 completed Not Available Not Available Not Available nabumeton e 500 mg tablet Take 1 tablet twice a day by oral route. 03/24 completed Not Available Not Available Not Available oxycodone 5 mg tablet TAKE 1 TABLET (5 MG TOTAL) BY MOUTH EVERY 4 (FOUR) HOURS NEEDED FOR PAIN active Not Available Not Available No t Available moxifloxa herve 0.5 % eye drops 1 DROP 3 TIMES PER DAY INTO SURGICAL EYE, START 1 DAY PRIOR TO SURGERY, CONTINUI NG FOR 1 WEEK AFTER active Not Available Not Available No t Available rosuvasta tin 5 mg tablet TAKE 1 TABLET BY MOUTH EVERY DAY 05/30 completed -- changed to Livalo 2 mg as Rosuvast atin causes GI upset and makes him feel funny. Not Available Not Available Not Available doxycycli ne monohydra te 40 mg capsule,i mmediate - delay release 03/24 completed Not Available Not Available Not Available Mucinex 1,200 mg tablet, extended release Take 1 tablet every 12 hours by oral route. 2023 active Not Available Not Available Not Avai lable Besivance 0.6 % eye drops,riky pension 03/24 completed Not Available Not Available Not Available Livalo 2 mg tablet TAKE 1 TABLET BY MOUTH EVERY DAY IN THE EVENING active Not Available Not Available No t Available Horizant ER 600 mg tablet,ex tended release Take 1 tablet every day by oral route as needed. 2022 active Not Available Not Available Not Avai lable Prolensa 0.07 % eye drops 03/24 completed Not Available Not Available Not Available Lotemax SM 0.38 % eye gel drops 03/24 completed Not Available Not Available Not Available Paxlovid 300 mg (150 mg x 2)-100 mg tablets in a dose pack USE DIRECTED 01/05 completed Not Available Not Available Not Available Vitals Date Recorded Body height Heart rate Respiratory rate Body temperature Body mass index (BMI) Body weight Systolic blood pressure Diastolic blood pressure Provider Name and Address Organization Details Last Updated DateTime 3 172.72 cm 62 /min 16 /min 98 [degF] 34.4 kg/m2 852685. 88 g 143 mm[Hg] 84 mm[Hg] [facility] 3 13:21:24 Date Recorded Body height Heart rate Respiratory rate Body temperature Body mass index (BMI) Body weight Systolic blood pressure Diastolic blood pressure Provider Name and Address Organization Details Last Updated DateTime 3 172.72 cm 73 /min 16 /min 98.3 [degF] 32.8 kg/m2 27019.9 5 g 136 mm[Hg] 85 mm[Hg] [facility] 3 14:27:34 Date Recorded Body height Heart rate Respiratory rate Body temperature Body mass index (BMI) Body weight Systolic blood pressure Diastolic blood pressure Provider Name and Address Organization Details Last Updated DateTime 3 172.72 cm 69 /min 16 /min 98.3 [degF] 33.1 kg/m2 83268.1 4 g 137 mm[Hg] 86 mm[Hg] [facility] 3 12:26:04 Date Recorded Body height Heart rate Respiratory rate Body temperature Body mass index (BMI) Body weight Provider Name and Address Organization Details Last Updated DateTime 4 172.72 cm 68 /min 16 /min 98 [degF] 32.4 kg/m2 10336.1 7 g [facility] 4 17:51:50 Date Recorded Systolic blood pressure Diastolic blood pressure Provider Name and Address Organization Details Last Updated DateTime 10/04/2023 126 mm[Hg] 70 mm[Hg] Mele Crump MD [address] [facility] [address], [place], [address], [facility] 10/04/2023 18:42:11 Date Recorded Body height Heart rate Respiratory rate Body temperature Body mass index (BMI) Body weight Systolic blood pressure Diastolic blood pressure Provider Name and Address Organization Details Last Updated DateTime 4 172.72 cm 71 /min 16 /min 97.4 [degF] 33.1 kg/m2 81085.1 4 g 133 mm[Hg] 84 mm[Hg] Letitia Torres [facility] 4 16:11:05 Social History Question Answer Notes LastModified by Organizat ion Details LastModified Time Tobacco Smoking Status Never Smoker Not Available [facility] 05/22/2020 03:12:13 What Is Your Level Of Alcohol Consumption? Occasional [id number] Information not available 05/22/2020 What Is Your Level Of Caffeine Consumption? Moderate Half Caf Coffee Per Day [email or web address] Information not available 01/05/2023 How Much Tobacco Do You Chew? None [id number] Information not available 05/22/2020 In The 14 Days Before Symptom Onset, Have You Had Close Contact With A Laboratory-confir med COVID-19 While That Case Was Ill? No [email or web address] Information not available 01/05/2023 In The 14 Days Before Symptom Onset, Have You Had Close Contact With A Person Who Is Under Investigation For COVID-19 While That Person Was Ill? No [email or web address] Information not available 01/05/2023 Have You Been To An Area Known To Be High Risk For COVID-19? No [email or web address] Information not available 01/05/2023 Which Illicit Or Recreational Drugs Have You Used? Never [id number] Information not available 05/22/2020 Have You Processed Blood Or Body Fluids From An Ebola Virus Disease Patient Without Appropriate PPE? No [email or web address] Information not available 01/05/2023 Have You Had Direct Contact With A Body In An Ebola-affected Area Without Appropriate PPE? No Information not available 01/05/2023 Have You Had Percutaneous (e.g. Needle Stick) Or Mucous Membrane Exposure To Blood Or Body Fluids From An Ebola Virus Disease Patient? No [email or web address] Information not available 01/05/2023 Do You Reside In Or Have You Traveled To An Area Where Ebola Virus Transmission Is Active? No Information not available 01/05/2023 Do You Or Have You Ever Used E-cigarettes Or Vape? Never Used Electronic Cigarettes [email or web address] Information not available 01/05/2023 What Is Your Occupation? Unemployed [email or web address] Information not available 01/05/2023 Marital Status [email or web address] Informatio n not available 01/05/2023 What Was The Date Of Your Most Recent Tobacco Screening? 03/20/2024 [email or web address] Information not available 03/20/2024 Do You Or Have You Ever Used Smokeless Tobacco? Never Used Smokeless Tobacco [email or web address] Information not available 01/05/2023 How Much Tobacco Do You Smoke? No [id number] Information not available 05/22/2020 How Many Years Have You Smoked Tobacco? 0 [email or web address] Information not available 01/05/2023 Sex: Unknown Functional Status None recorded. Mental Status None recorded. Family History Relationship Description Onset Age of this Age Resolved Age Notes LastModified by Organization Details LastModified Time Father No current problems or disability [email or web address] Not available 08/2022 14:45:45 Father Heart disease 79 [email or web address] Not available 2019 13:27:10 Father Diabetes mellitus 79 [email or web address] Not available 2019 13:30:08 Mother No current problems or disability [email or web address] Not available 08/2022 14:45:45 Medical History Condition Response Diabetes N Other N Seizures/Epilepsy N Cancer N Stroke N Thyroid Problems N Lung Disease N GI Problems N Anemia N Bladder or Kidney Problems N High Cholesterol N Heart Disease N Hypertension N Mental Illness N Immunizations Vaccine Type Date Status Note Provider Nam e and Address Organization Details Recorded Time Influenza, recombinant, quadrivalent, PF 0 completed Not Available [facility] 09/02/2023 06:10:33 COVID-19, mRNA, LNP-S, PF, 30 mcg/0.3 mL dose 1 completed Not Available [facility] 09/02/2023 06:10:33 COVID-19, mRNA, LNP-S, PF, 30 mcg/0.3 mL dose 1 completed Not Available [facility] 09/02/2023 06:10:33 COVID-19, mRNA, LNP-S, PF, 30 mcg/0.3 mL dose 1 completed Not Available [facility] 09/02/2023 06:10:33 Influenza, split virus, quadrivalent, preservative 1 completed Not Available [facility] 09/02/2023 06:10:33 Influenza, split virus, quadrivalent, PF 2 completed Not Available [facility] 09/02/2023 06:10:33 zoster recombinant 3 completed Not Available [facility] 09/02/2023 06:10:33 Influenza, adjuvanted, quadrivalent, PF 3 completed Not Available [facility] 09/02/2023 06:10:33 Influenza, split virus, quadrivalent, preservative 4 completed Not Available [facility] 09/02/2023 06:10:33 Influenza, split virus, trivalent, preservative 7 completed Not Available [facility] 08/24/2019 02:27:23 Past Encounters Encounter ID Performer Location Encounter Start Date Encounter Closed Date Diagnosis/Indication Diagnosis SNOMED-CT Code Diagnosis ICD10 Code Diagnosis Note [id number] Mele Crump MD [facility] [address] [place] [address] 01/21/2016 11:59:12 01/21/2016 14:35:51 Coronary arteriosclerosis 46767604 I25.10 Patient just had a stress echo with cardiologi st Dr. Garber On 12/28/15 Dyslipidemia 029527518 E 78.5 and f/h of ischemic heart disease; will keep LDL less than 70 and HDL more than 40 Benign ess ential hypertension 1748425 I10 Gastroesop hageal reflux disease 228447507 K21.9 asymtomati c Pleurisy 961785204 R09.1 vs Costochond ritis (x 3 months; worse w/ deep inspiratio n & when laying supine) -- will issue trial of Medrodose ramin. [id number] Mele Crump MD [facility] [address] [place] [address] 08/11/2016 09:56:15 08/11/2016 12:01:26 Benign essential hypertension 7304575 I10 -- uncontroll ed; start Amlodipine 5 mg qd Pleurisy 986595742 R09.1 vs Max hawkins (x 3 months; worse w/ deep inspiratio n & when laying supine) -- occasional Coronary arteriosclerosis 36722905 I25.10 -- patient had a stress echo with cardiologi st Dr. Garber on 12/28/15 Dyslipidemia 474459572 E 78.5 and f/h of ischemic heart disease; will keep LDL less than 70 and HDL more than 40 Gastroesop hageal reflux disease 836692015 K21.9 asymtomati c Screening for cancer 158 17902 Z12.9 -- Last colonoscop y was with gastroente rologist Dr. Rudolph Lea Obesity 312124079 E66.9 -- advised weight loss; pt gained 3.5 # since his last visit-- pt's BMI today is 33.1 Viral screening 38829417 4 Z11.59 Active or passive immunization 146347556 Z23 Depression screening 171 363113 Z13.89 -- negative Adult heal th examination 032480464 Z00.00 [id number] Mele Crump MD [facility] [address] [place] [address] 12/08/2016 08:56:56 12/08/2016 10:13:54 Adverse reaction to drug 76240190 T88.7XXA (facial rash, numbness & tingling in left shoulder and left arm) -- without any angina or angina equivalent symptoms when exercising at home (P90X) and weight lifting.-- pt also reports that just had a normal stress test with cardiologi st Dr Garber in June 2016( was able be on treadmill for 13 minutes). Benign ess ential hypertension 5109480 I10 -- uncontroll ed-- discontinu e Amlodipine 5 mg & start Lisinopril -hctz 05/18.5-- Patient advised to come in for nursing blood pressure check in 3 weeks and to recheck BMP in 3 weeks. Body mass index 30+ - obesity 561722094 Z68.33 -- advised weight loss; Patient gain 1.5 # since his last visit.-- Patient's BMI today is 3.3 (ideal is between 20-25). Active or passive immunization 777950835 Z23 [id number] Mele Crump MD [facility] [address] [place] [address] 03/10/2017 08:38:19 03/10/2017 09:47:34 Benign essential hypertension 9715803 I10 -- controlled Dyslipidemia 208542056 E 78.5 and f/h of ischemic heart disease; will keep LDL less than 70 and HDL more than 40 Gastroesop hageal reflux disease 302165705 K21.9 asymtomati c Pleurisy 238451748 R09.1 -- resolved Viral screening 88866519 4 Z11.59 -- hepatitis C antibodies nonreactiv e on 08/11/16 Active or passive immunization 594167996 Z23 Depression screening 171 842645 Z13.89 -- negative for depression symptoms Body mass index 30+ - obesity 123378547 Z68.33 -- advised weight loss; Patient gain 4 # since his last visit (pt's clothing a lot looser) and pt has been working out in the Gym a lot.-- Patient's BMI today is 33.9 (ideal is between 20-25). Antiplatel et agent therapy 456043438 Z79.02 Allergic rhinitis 172907 04 J30.9 Screening for malignant neoplasm of colon 466435278 Z12.11 -- Last colonoscop y with Dr. Lea was 10/22/13 Screening for malignant neoplasm of prostate 325996279 Z12.5 -- PSA level 0.75 7 Rosacea 672825468 L71.9 -- started when pt was on Norvasc but sx persisted after stopping Amlodipine -- refer pt to Derm [id number] [email or web address] [address] [facility] [address] [place] [address] 09/11/2017 09:41:55 09/11/2017 11:17:46 Influenza-like illness 57910900 B34.9 Benign ess ential hypertension 0177071 I10 -- controlled Rosacea 205142111 L71.9 -- started when pt was on Norvasc but sx persisted after stopping Amlodipine -- refer pt to Derm Allergic rhinitis 728963 04 J30.9 Body mass index 30+ - obesity 912215290 Z68.33 -- advised weight loss; Patient gain 1 # since his last visit-- Patient's BMI today is 34.1 (ideal is between 20-25). Gastroesop hageal reflux disease 360726326 K21.9 asymtomati c Viral screening 39607837 4 Z11.59 -- hepatitis C antibodies nonreactiv e on 08/11/16 Active or passive immunization 632753652 Z23 Depression screening 171 663472 Z13.89 -- negative for depression symptoms Antiplatel et agent therapy 818875683 Z79.02 Screening for malignant neoplasm of colon 518429233 Z12.11 -- Last colonoscop y with Dr. Lea was 10/22/13 Screening for malignant neoplasm of prostate 667939185 Z12.5 -- PSA level 0.75 06/11/17 Chest pain 13557134 R07. 9 (left lateral) -- chronic on & off and Coronary arteriosclerosis 97134646 I25.10 (mild to mod CAD on cardiac cath by Dr Garber in 2009) -- patient had a stress echo with cardiologi st Dr. Garber on 12/28/15-- advised pt to keep appt w/ Dr Garber today 09/11/17 at 3 PM Hyperlipidemia 43131317 E78.5 and f/h of ischemic heart disease; will keep LDL less than 70 and HDL more than 40 [id number] Mele Crump MD [facility] [address] [facility] [address] [place] [address] 06/12/2018 10:21:22 06/12/2018 12:24:52 Adult health examination 356392641 Z00.00 Chest pain 54999254 R07. 9 (left lateral) -- chronic on & off-- pt reports Cardiologi st Dr Garber ordered CT scan of his coronaries but pt has not done it yet. Benign ess ential hypertension 0638779 I10 -- controlled -- check lab(s) around 08/21/18 Coronary arteriosclerosis 65570152 I25.10 (mild to mod CAD on cardiac cath by Dr Garber in 2009) -- patient had a stress echo with cardiologi st Dr. Garber on 12/28/15-- pt reports Cardiologi st Dr Garber ordered CT scan of his coronaries but pt has not done it yet. Rosacea 273977449 L71.9 -- started when pt was on Norvasc but sx persisted after stopping Amlodipine -- refer pt to Derm Hyperlipidemia 54606310 E78.5 and f/h of ischemic heart disease; will keep LDL less than 70 and HDL more than 40-- check lab(s) around 08/21/18 Allergic rhinitis 879290 04 J30.9 Body mass index 30+ - obesity 721702857 Z68.36 -- advised weight loss; Patient gain 14 # since his last visit-- Patient's BMI today is 36.2 (ideal is between 20-25). Gastroesop hageal reflux disease 554245220 K21.9 asymtomati c Viral screening 31616308 4 Z11.59 -- hepatitis C antibodies nonreactiv e on 08/11/16 Active or passive immunization 984419377 Z23 Depression screening 171 465156 Z13.89 -- negative for depression symptoms Antiplatel et agent therapy 850925206 Z79.02 Screening for malignant neoplasm of colon 832945655 Z12.11 -- Last colonoscop y with Dr. Lea was 10/22/13 Screening for malignant neoplasm of prostate 270423787 Z12.5 -- PSA level 0.75 06/11/17 Hyperglycemia 61918964 R 73.9 Z83.3 -- check lab(s) around 08/21/18 [id number] ANDRES RIVERA APN [facility] [address] [place] [address] 07/19/2018 09:50:04 07/19/2018 10:40:08 Abnormal findings on diagnostic imaging of urinary organs 622409688 R93.41 Cholelithi asis without obstruction 84578233 K80.20 Steatosis of liver 33612 1007 K76.0 LFTs normal 05/2018 Hyperglycemia 58432780 R 73.9 [id number] Mele Crump MD [facility] [address] [place] [address] 02/06/2019 16:13:27 02/06/2019 17:59:49 Musculoskeletal pain 586934316 M79.10 -- resolved Body mass index 30+ - obesity 017826424 Z68.39 -- advised weight loss; Patient gained 7 # since his last visit (from weight lifting0-- Patient's BMI today is 36.3 (ideal is between 20-25). Hyperglycemia 33350593 R 73.9 Z83.3 -- check lab(s) around 08/21/18 Hyperlipidemia 94457156 E78.5 and f/h of ischemic heart disease; will keep LDL less than 70 and HDL more than 40-- check lab(s) around 08/21/18 [id number] Mele Crump MD [facility], [facility] [address] [place] [address] 08/09/2019 10:38:04 08/09/2019 12:53:57 Adult health examination 503910740 Z00.00 Hyperglycemia 38152826 R 73.9 Z83.3 -- check lab(s) within 5 days from 08/09/19 Body mass index 30+ - obesity 227331735 Z68.35 -- advised weight loss; Patient lost 5 # since his last visit (from weight lifting)-- Patient's BMI today is 35.6 (ideal is between 20-25). Hyperlipidemia 30076584 E78.5 and f/h of ischemic heart disease; will keep LDL less than 70 and HDL more than 40-- check lab(s) within 5 days from 08/09/19 Hepatitis C screening 41 6799793 Z11.59 -- Hep C negative on 08/11/16 Active or passive immunization 935037201 Z23 Screening for malignant neoplasm of colon 065587043 Z12.11 -- Last colonoscop y with Dr. Lea was 10/22/13 Screening for malignant neoplasm of prostate 134894706 Z12.5 -- PSA level 0.75 06/11/17 [id number] Mele Crump MD [email or web address], [facility] [address] [place] [address] 10/07/2019 12:10:44 10/07/2019 14:06:20 Cataract 010669651 H26.9 (right eye) -- cleared for surgery by Dr Tiburcio Taylor on 10/23/19 [id number] Mele Crump MD [facility], [facility] [address] [place] [address] 03/30/2020 12:32:38 03/30/2020 14:52:11 Hyperglycemia 07898440 R73.9 A1C was 5.9 on 08/2019 Hyperlipidemia 22724185 E78.5 and f/h of ischemic heart disease; will keep LDL less than 70 and HDL more than 40-- LDL was still 81 on 08/09/2019 -- Pt could not be on Rosuvastat in due to GI upset Body mass index 30+ - obesity 906421824 Z68.33 -- advised weight loss; Patient lost 4 # since his last visit (from weight lifting)-- Patient's BMI today is 33.3 (ideal is between 20-25). Hepatitis C screening 41 2680417 Z11.59 -- Hep C negative on 08/11/16 Screening for malignant neoplasm of colon 183866657 Z12.11 -- Last colonoscop y with Dr. Lea was 10/22/13 Screening for malignant neoplasm of prostate 984006402 Z12.5 -- PSA level 0.7 on 08/09/2019 Essential hypertension 19312029 I10 -- last EKG done in February 2020 Abnormal f indings on diagnostic imaging of urinary organs 848472429 R93.41 Pt had US of abdomen done 07/16/2018 - showed small right renal massCT Abd w/ and w/o contrast was ordered 07/27/2018 ---> showed 4 mm low attenuatio n lesion in the lower pole of the R kidney which is too small to accurately characteri ze, but it may represent a cyst.-- Need to repeat US Kidney --> overdue [id number] Mele Crump MD [facility] [address] [place] [address] 09/30/2020 09:45:51 09/30/2020 11:49:18 Abnormal findings on diagnostic imaging of urinary organs 705454129 R93.41 Pt had US of abdomen done 07/16/2018 - showed small right renal massCT Abd w/ and w/o contrast was ordered 07/27/2018 ---> showed 4 mm low attenuatio n lesion in the lower pole of the R kidney which is too small to accurately characteri ze, but it may represent a cyst.-- Need to repeat US Kidney --> overdue Hyperlipidemia 42602930 E78.5 and f/h of ischemic heart disease; will keep LDL less than 70 and HDL more than 40-- LDL was still 81 on 08/09/2019 -- Pt could not be on Rosuvastat in due to GI upset -- recheck labs within 3 days from 09/30/20 Essential hypertension 78120525 I10 -- last EKG done in February 2020-- recheck labs within 3 days from 09/30/20 Hyperglycemia 82883580 R 73.9 A1C was 5.9 on 08/2019-- recheck labs within 3 days from 09/30/20 Body mass index 30+ - obesity 942873183 Z68.33 -- advised weight loss; Patient lost 4 # since his last visit (from weight lifting)-- Patient's BMI today is 33.9 (ideal is between 20-25). Hepatitis C screening 41 2625127 Z11.59 -- Hep C negative on 08/11/16 Screening for malignant neoplasm of colon 358894204 Z12.11 -- Last colonoscop y with Dr. Lea was 10/22/13 Screening for malignant neoplasm of prostate 110680265 Z12.5 -- PSA level 0.7 ( 0)-- recheck labs within 3 days from 09/30/20 Hepatomegaly 65191414 R1 6.0 (reported to pt on his nuclear stress test) [id number] Mele Crump MD [facility], [facility] [address] [place] [address] 11/03/2020 09:51:09 11/03/2020 10:42:56 Adult health examination 032927499 Z00.00 Atypical chest pain 1025 80922 R07.89 -- pt reported he has chest pain sometimes in his left chest (especiall y when he lays on his left side) & sometimes in his right chest -- pt also reported that he had a normal nuclear stress test w/ Cardiologi st Dr Garber in Sep 2020 -- check D-dimer today; if normal will do CXR. Hepatomegaly 48333731 R1 6.0 (reported to pt on his nuclear stress test) -- normal liver u/s Hyperlipidemia 45510613 E78.5 and f/h of ischemic heart disease; will keep LDL less than 70 and HDL more than 40 -- LDL was still 81 on 08/09/2019 -- Pt could not be on Rosuvastat in due to GI upset -- recheck labs on 04/15/21 Essential hypertension 42259277 I10 -- last EKG done in February 2020 -- recheck labs on 04/15/21 Hyperglycemia 20289155 R 73.9 A1C was 5.9 on 08/2019 -- recheck labs on 04/15/21 Body mass index 30+ - obesity 570511610 Z68.33 -- advised weight loss; Patient lost 4 # since his last visit (from weight lifting)-- Patient's BMI today is 33.9 (ideal is between 20-25). Hepatitis C screening 41 2836905 Z11.59 -- Hep C negative on 08/11/16 Screening for malignant neoplasm of colon 017236674 Z12.11 -- Last colonoscop y with Dr. Lea was 10/22/13 Screening for malignant neoplasm of prostate 434785381 Z12.5 -- PSA level 0.7 ( 0) --> 0.9 (09/30/20) [id number] Mele Crump MD [facility], [facility] [address] [place] [address] 01/20/2021 09:56:04 01/20/2021 11:25:29 Atypical chest pain 141051448 R07.89 -- pt reported he has chest pain sometimes in his left chest (especiall y when he lays on his left side) & sometimes in his right chest -- pt also reported that he had a normal nuclear stress test w/ Cardiologi st Dr Garber in Sep 2020 -- normal D-dimer (11/03/20) -- will do CXR; -- ? musculoske letal or pleuritic origin -- will issue Medrol ramin Hyperlipidemia 18463792 E78.5 -- recheck labs on 04/15/21 Essential hypertension 60038869 I10 -- last EKG done in February 2020 -- recheck labs on 04/15/21 Hyperglycemia 76905739 R 73.9 A1C was 5.9 on 08/2019 -- recheck labs on 04/15/21 Body mass index 30+ - obesity 864408058 Z68.33 -- advised weight loss; Patient gained 1 # since his last visit (from weight lifting)-- Patient's BMI today is 34.2 (ideal is between 20-25). Hepatomegaly 97352672 R1 6.0 (reported to pt on his nuclear stress test) -- normal liver u/s 10/09/20 Hepatitis C screening 41 5209575 Z11.59 -- Hep C negative on 08/11/16 Screening for malignant neoplasm of colon 386035872 Z12.11 -- Last colonoscop y with Dr. Lea was 10/22/13 Screening for malignant neoplasm of prostate 040339225 Z12.5 -- PSA level 0.7 ( 0) --> 0.9 (09/30/20) [id number] Mele Crump MD [facility], [facility] [address] [place] [address] 05/31/2021 11:48:37 05/31/2021 13:41:27 Atypical chest pain 205357967 R07.89 -- pt reported he has chest pain sometimes in his left chest (especiall y when he lays on his left side) & sometimes in his right chest -- pt also reported that he had a normal nuclear stress test w/ Cardiologi st Dr Garber in Sep 2020 -- normal D-dimer (11/03/20) -- resolved-- normal cadiac cath by Dr Garber n in Apr 2021 Hyperlipidemia 77217606 E78.5 -- recheck labs today Essential hypertension 00029145 I10 -- last EKG done in February 2020 -- recheck labs today Hyperglycemia 24062753 R 73.9 A1C was 5.9 on 08/2019 -- recheck labs today Body mass index 30+ - obesity 173044040 Z68.33 -- advised weight loss; Patient lost 5 # since his last visit (from weight lifting)-- Patient's BMI today is 33.5 (ideal is between 20-25). Hepatomegaly 38360522 R1 6.0 (reported to pt on his nuclear stress test) -- normal liver u/s 10/09/20 Hepatitis C screening 41 4081861 Z11.59 -- Hep C negative on 08/11/16 Screening for malignant neoplasm of colon 829841903 Z12.11 -- Last screening colonoscop y with Dr. Lea was 10/22/13 Screening for malignant neoplasm of prostate 181935699 Z12.5 -- PSA level 0.7 ( 0) --> 0.9 (09/30/20) Active or passive immunization 774781068 Z23 [id number] Mele Crump MD [facility] [address] [place] [address] 12/06/2021 14:39:33 12/06/2021 16:43:35 Adult health examination 686832863 Z00.00 Essential hypertension 49684793 I10 -- last EKG done in February 2020 -- recheck labs today Hyperlipidemia 35170535 E78.5 -- recheck labs today Hyperglycemia 54442005 R 73.9 A1C was 5.9 on 08/2019 -- recheck labs today Body mass index 30+ - obesity 685261586 Z68.33 -- advised weight loss; Patient lost 5 # since his last visit (from weight lifting)-- Patient's BMI today is 33.5 (ideal is between 20-25). Hepatomegaly 25012524 R1 6.0 (reported to pt on his nuclear stress test) -- normal liver u/s 10/09/20 Atypical chest pain 1025 51865 R07.89 -- pt reported he has chest pain sometimes in his left chest (especiall y when he lays on his left side) & sometimes in his right chest-- normal CXR on 01/26/21-- pt also reported that he had a normal nuclear stress test w/ Cardiologi st Dr Garber in Sep 2020-- normal cadiac cath by Dr Garber n in Apr 2021 Hepatitis C screening 41 9464040 Z11.59 -- Hep C negative on 08/11/16 Active or passive immunization 629116020 Z23 Screening for malignant neoplasm of colon 897311501 Z12.11 -- Last screening colonoscop y with Dr. Lea was 10/22/13 Screening for malignant neoplasm of prostate 748933674 Z12.5 -- PSA level 0.7 ( 0) --> 0.9 (09/30/20) Gastroesop hageal reflux disease without esophagitis 098244765 K21.9 [id number] Mele Crump MD [facility] [address] [place] [address] 06/10/2022 08:32:37 06/10/2022 09:43:03 Adult health examination 056903208 Z00.00 Essential hypertension 23159964 I10 -- last EKG done in February 2020 -- recheck labs today Hyperlipidemia 74756803 E78.5 -- recheck labs today Gastroesop hageal reflux disease without esophagitis 986361981 K21.9 -- asymptomat ic since on Omeprazole Hyperglycemia 75244192 R 73.9 A1C was 5.9 on 08/2019 -- recheck labs today Body mass index 30+ - obesity 993774976 Z68.33 -- advised weight loss; Patient gained 2 # since his last visit (from weight lifting)-- Patient's BMI today is 34.1 (ideal is between 20-25). Hepatomegaly 77687963 R1 6.0 (reported to pt on his nuclear stress test) -- but normal liver u/s 10/09/20 Atypical chest pain 1025 71745 R07.89 -- no symptoms 2 months after starting on Omeprazole in December 2021 Hepatitis C screening 41 0025444 Z11.59 -- tested negative for Hepatitis C on 08/11/16 Active or passive immunization 871885794 Z23 -- advised pt on CDC guidelines to get the Covid shot Screening for malignant neoplasm of colon 113928169 Z12.11 -- Last colonoscop y (done for bleeding from diverticul itis) with Dr. Lea was 10/22/13; no polyps found-- pt does not have any sx; and he has no FH for any colon cancer or colon polyps Screening for malignant neoplasm of prostate 896630751 Z12.5 -- PSA level 0.7 ( 0) --> 0.9 (09/30/20) --> 1.1 (12/06/21) COVID-19 881125530 U07.1 -- recovered completely without any residuals [id number] Mele Crump MD [facility] [address] [place] [address] 01/05/2023 14:45:27 01/05/2023 17:01:48 Essential hypertension 39733250 I10 -- last EKG done in February 2020 -- recheck labs today Hyperlipidemia 29668365 E78.5 -- recheck labs today Gastroesop hageal reflux disease without esophagitis 077881270 K21.9 -- asymptomat ic since on Omeprazole COVID-19 110971564 U07.1 -- recovered completely without any residuals Body mass index 30+ - obesity 022513958 Z68.33 -- advised weight loss; Patient gained 2 # since his last visit (from weight lifting)-- Patient's BMI today is 34.1 (ideal is between 20-25). Hepatomegaly 68496775 R1 6.0 (reported to pt on his nuclear stress test) -- but normal liver u/s 10/09/20 Atypical chest pain 1025 32517 R07.89 -- no symptoms 2 months after starting on Omeprazole in December 2021 Hepatitis C screening 41 7268969 Z11.59 -- tested negative for Hepatitis C on 08/11/16 Active or passive immunization 190722866 Z23 -- advised pt on CDC guidelines to get the Covid shot Screening for malignant neoplasm of colon 918628852 Z12.11 -- Last colonoscop y (done for bleeding from diverticul itis) with Dr. Lea was 10/22/13; no polyps found-- pt does not have any sx; and he has no FH for any colon cancer or colon polyps Screening for malignant neoplasm of prostate 346543776 Z12.5 -- PSA level 0.7 ( 0) --> 0.9 (09/30/20) --> 1.1 (12/06/21) Impaired g lucose tolerance 9315398 R73.03 A1C was 5.9 (08/2019) --> 6.2 (06/10/22) HIV screening 127006399 Z11.4 Adult heal th examination 100254330 Z00.00 [id number] Mele Crump MD [facility] [address] [place] [address] 05/02/2023 15:23:53 05/02/2023 17:22:55 Left upper quadrant pain 645140949 R10.12 Impaired g lucose tolerance 8750429 R73.03 A1C was 5.9 (08/2019) --> 6.2 (06/10/22) Hyperlipidemia 62982404 E78.5 -- recheck labs today Body mass index 30+ - obesity 564354514 Z68.39 -- advised weight loss; Patient gained 2 # since his last visit (from weight lifting)-- Patient's BMI today is 34.1 (ideal is between 20-25). Active or passive immunization [id number] Z23 -- advised pt on CDC guidelines to get the Covid shot [id number] Mele Crump MD [facility], [facility] [address] [place] [address] 06/01/2023 12:13:15 06/01/2023 14:35:04 Left upper quadrant pain 265935192 R10.12 Atheroscle rosis of aorta 39831175 I70.0 -- LDL on 05/04/23 Obstructiv e sleep apnea of adult [id number] 103 G47.33 -- on CPAP [id number] Mele Crump MD [facility], [facility] [address] [place] [address] 06/27/2023 13:47:11 06/27/2023 15:55:05 Essential hypertension 36838134 I10 -- EKG done 01/25/19 -- recheck labs today Hyperlipidemia 90412492 E78.5 -- controlled Gastroesop hageal reflux disease without esophagitis 646888524 K21.9 -- asymptomat ic since on Omeprazole Impaired g lucose tolerance 1940320 R73.03 A1C was 5.9 (08/2019) --> 6.2 (06/10/22) Body mass index 30+ - obesity 427303983 Z68.39 -- advised weight loss; Patient gained 2 # since his last visit (from weight lifting)-- Patient's BMI today is 34.1 (ideal is between 20-25). Atheroscle rosis of aorta 12272542 I70.0 -- Vascular calcificat ions evident on CT of abd/pelvis on 06/19/23-- LDL of 50 (05/04/23) Herpes zoster 5023267 B0 2.9 (numbing, and at times painful; sometimes mcfarlane) [id number] Mele Crump MD [facility], [facility] [address] [place] [address] 08/02/2023 10:56:57 08/02/2023 13:21:02 Diverticulitis of colon 682613345 K57.32 -- asymptomat ic; referred pt to GI Dr Sanchez Casanova Long-term drug therapy 916946504 Z79.899 (metformin ) -- had abd/pelvis CT w/ contrast; will check kidney function Herpes zoster 5412567 B0 2.9 (numbing, and at times painful; sometimes mcfarlane) Essential hypertension 25218858 I10 -- EKG done 01/25/19 Atheroscle rosis of aorta 53376449 I70.0 -- Vascular calcificat ions evident on CT of abd/pelvis on 06/19/23-- LDL of 50 (05/04/23) Hyperlipidemia 43592071 E78.5 -- controlled Gastroesop hageal reflux disease without esophagitis 256160376 K21.9 -- asymptomat ic since on Omeprazole Impaired g lucose tolerance 2908615 R73.03 A1C was 5.9 (08/2019) --> 6.2 (06/10/22)- - check lab around 11/02/23 Body mass index 30+ - obesity 458619280 Z68.39 -- advised weight loss; Patient gained 2 # since his last visit (from weight lifting)-- Patient's BMI today is 34.1 (ideal is between 20-25). Screening for malignant neoplasm of prostate 995235772 Z12.5 -- PSA level 0.7 ( 0) --> 0.9 (09/30/20) --> 1.1 (12/06/21)-- check lab today [id number] Mele Crump MD [facility] [address] [place] [address] 10/04/2023 16:09:08 10/04/2023 18:43:29 Coronary arteriosclerosis 58518386 I25.10 (mild to mod CAD on cardiac cath by Dr Garber in 2009) -- patient had a stress echo with cardiologi st Dr. Garber on 12/28/15-- pt reports Cardiologi st Dr Garber ordered CT scan of his coronaries but pt has not done it yet.-- pt went to [facility] ER and underwent cardiac stent on Dr Rima Kumar on 08/31/23.-- on bleeding while on Plavix and asymptomat ic since cardiac stent Age-relate d nuclear cataract of left eye [id number] 56114 H25.12 -- cleared for cataract surgery by Dr Tiburcio Taylor on 10/11/23 ([facility]). [id number] Mele Crump MD [facility], [facility] [address] [place] [address] 03/20/2024 15:38:39 03/20/2024 17:30:14 Acute conjunctivitis of left eye [id number] 94976 H10.32 Coronary arteriosclerosis 03395729 I25.10 (mild to mod CAD on cardiac cath by Dr Garber in 2009) -- patient had a stress echo with cardiologi st Dr. Garber on 12/28/15-- pt reports Cardiologi st Dr Garber ordered CT scan of his coronaries but pt has not done it yet.-- pt went to [facility] ER and underwent cardiac stent on Dr Rima Kumar on 08/31/23.-- asymptomat ic since cardiac stent Age-relate d nuclear cataract of left eye [id number] 67655 H25.12 -- cleared for cataract surgery by Dr Tiburcio Taylor on 10/11/23 ([facility]). Cholecystitis 37004673 K 81.9 -- pt reported Dr Neel Qureshi has cleared him to hold Clopidogre l for cholecyste ctomy Essential hypertension 87340288 I10 -- EKG done 01/25/19 Hyperlipidemia 05022380 E78.5 -- controlled Atheroscle rosis of aorta 75744367 I70.0 -- Vascular calcificat ions evident on CT of abd/pelvis on 06/19/23-- LDL of 50 (05/04/23) Impaired g lucose tolerance 2963088 R73.03 A1C was 5.9 (08/2019) --> 6.2 (06/10/22)- - check lab around 11/02/23 Body mass index 30+ - obesity 989918482 Z68.39 -- advised weight loss; Patient gained 5 # since his last visit (from weight lifting)-- Patient's BMI today is 33.1 (ideal is between 20-25). Hepatitis C screening 43 5447739 Z11.59 -- tested negative for Hepatitis C on 08/11/16 HIV screening 146536913 Z11.4 -- tested negative for HIV on 01/14/24 Active or passive immunization 413865180 Z23 -- advised pt on CDC guidelines to get the Covid shot Screening for malignant neoplasm of colon 683680505 Z12.11 -- Last colonoscop y (done for bleeding from diverticul itis) with Dr. Lea was 10/22/13; no polyps found-- pt does not have any sx; and he has no FH for any colon cancer or colon polyps-- pt reported Dr Sanchez Casanova informed him to repeat colonoscop y 3 years from 02/26/24 Screening for malignant neoplasm of prostate 208348001 Z12.5 -- PSA level 0.7 ( 0) --> 0.9 (09/30/20) --> 1.1 (12/06/21) --> 1.2 (08/02/23) Health Concerns Section Related Observation LastModified by Organization Detai ls LastModified Time None Recorded Concern Status LastModified by Organization Details LastModified Time None Recorded Advance Directives Directive None Recorded Payers Encounter Date Sequence Insurance Name Policy Number Policy Marroquin Covered Member ID Marroquin Member ID Guarantor Name 06/01/2023 1 [employer] (MEDICARE REPLACEMENT PPO) [id number] Nena Dietrich [id number] Nena Dietrich 06/27/2023 1 [employer] (MEDICARE REPLACEMENT PPO) [id number] Nena Dietrich [id number] Nena Dietrich 08/02/2023 1 [employer] (MEDICARE REPLACEMENT PPO) [id number] Nena Dietrich [id number] Nena Dietrich 10/04/2023 1 [employer] (MEDICARE REPLACEMENT PPO) [id number] Nena Dietrich [id number] Nena Dietrich 03/20/2024 1 [employer] (MEDICARE REPLACEMENT PPO) [id number] Nena Dietrich [id number] Nena Dietrich Notes Date Note Type Note Provider Name and Address Organization Details Recorded Time 06/01/2023 text/html Pt comes in for f/u of LUQ -- comes and goes (not always in LUQ -- sometimes in chest). Pt feels well and has no c/o. Pt has no new sx and no increasing sx. Patient denies any jaw or neck discomfort, left arm pain/left arm discomfort, chest discomfort/pain, diaphoresis, breathing symptoms/chest tightness, indigestion sx, n/v, any angina equivalent symptoms, etc. Mele Crump MD [address] [facility] [address], [place], [address], [facility] 06/01/2023 14:26:39 06/27/2023 text/html Pt comes in for pain at his left hip area. He is also here to f/u of his BP, Atherosclerosis, HLD, GERD, and pre-diabetes and weight. Pt feels well and has no c/o. Pt has no new sx and no increasing sx. Patient denies any jaw or neck discomfort, left arm pain/left arm discomfort, chest discomfort/pain, diaphoresis, breathing symptoms/chest tightness, indigestion sx, n/v, any angina equivalent symptoms, etc. Mele Crump MD [address], [place], [address], [facility] 06/27/2023 15:41:42 08/02/2023 text/html Pt comes in for f/u Diverticulitis. No more sx. No f/c, n/v, abdominal discomfort/pain, or BRBPR/Melena. Pt feels well and has no c/o. Pt has no new sx and no increasing sx. Patient denies any jaw or neck discomfort, left arm pain/left arm discomfort, chest discomfort/pain, diaphoresis, breathing symptoms/chest tightness, indigestion sx, n/v, any angina equivalent symptoms, etc. Mele Crump MD [address], [place], [address], [facility] 08/02/2023 13:11:54 10/04/2023 text/html Pt had diverticulitis 06/18/23, & recurrence of Diverticulitis 07/22/23.Pt got a stent on 08/31/23 and was placed on Plavix.Pt had a cholecystitis on 09/03/23 -- could not do cholecytosomy due to being on Plavix. Pt feels well and has no c/o. Pt has no new sx and no increasing sx. Patient denies any jaw or neck discomfort, left arm pain/left arm discomfort, chest discomfort/pain, diaphoresis, breathing symptoms/chest tightness, indigestion sx, n/v, any angina equivalent symptoms, etc. Mele Crump MD [address] [facility] [address], [place], [address], [facility] 10/04/2023 18:42:50 03/20/2024 text/html Pt comes in for f/u of CAD (asymptomatic), HTN, HLD, pre-diabetes, and weight monitoring. Pt feels well and has no c/o. Pt has no new sx and no increasing sx. Patient denies any jaw or neck discomfort, left arm pain/left arm discomfort, chest discomfort/pain, diaphoresis, breathing symptoms/chest tightness, indigestion sx, n/v, any angina equivalent symptoms, etc. Mele Crump MD [address] [facility] [address], [place], [address], [facility] 03/20/2024 17:29:15
--- OUTSIDE RECORDS SUMMARY | 2024-10-10 10:07 | XMS_ITS | Encounter Summary ---
Author Organization [facility] Address [address] [place] [address] Care Team Providers Care Bell Valet Name Role Phone Mele Crump MD Primary Care Provider [phone] Encounter Details Date Type Department Care Team (Late st Contact Info) Description 06/27/2023 Abstract [facility] [address] Flex Vela [place] Social History Tobacco Use Types Packs/Day Years Used Date Smoking Tobacco: Never Smokeless Tobacco: Never Alcohol Use Standard Drinks/Week Comments Not Currently 0 (1 standard drink = 0.6 oz pur e alcohol) Sex and Gender Information Value Date Recorded Sex Assigned at Male 10/24/2023 8:01 AM CDT Legal Sex Male 8:30 PM CDT Gender Identity Male 10/24/2023 8:01 AM CDT Sexual Orientation Straight 10/24/2023 8: 01 AM CDT documented as of this encounter Plan of Treatment Not on file documented as of this encounter Procedures Procedure Name Priority Date/Time Associated Diagnosis Comments HEMOGLOBIN, GLYCOSYLATED Routine 05/04/2023 COMPREHENSIVE METABOLIC PANEL Routine 05/04/2023 LIPID PANEL Routine 05/04/2023 CBC, MANUAL DIFF Routine 05/04/2023 documented in this encounter Results * COMPREHENSIVE METABOLIC PANEL (05/04/2023) SODIUM S/P/B 142 GLUCOSE 118 mg/dL AST 18 BUN 18 CREATININE S/P/B 0.8 0.7 - 1.3 CALCIUM S/P/B 9.8 POTASSIUM S/P/B 4.8 CHLORIDE S/P/B 100 ALT 22 GFR ESTIMATE 97 us Default History Genericprovider LABORATORY Final Result * LIPID PANEL (05/04/2023) Pathologist [facility] CHOLESTEROL 105 TRIGLYCERIDES 79 HDL 39 LDL (CALCULATED) 50 us Default History Genericprovider LABORATORY Final Result * CBC, MANUAL DIFF (05/04/2023) Pathologist [facility] WBC 9.1 HGB 15.3 HCT 49 PLT 297 us Default History Genericprovider LABORATORY Final Result * HEMOGLOBIN, GLYCOSYLATED (05/04/2023) Pathologist [facility] HGB A1C 6.4 % us Default History Genericprovider LABORATORY Final Result documented in this encounter Visit Diagnoses Not on filedocumented in this encounter Care Teams Bell Valet Relationship Specialty Start Date End Date Mele Crump MD [address] [facility] [address] [place] [address] PCP - General INTERNAL MEDICINE 06/07/23 documented as of this encounter
--- OUTSIDE RECORDS SUMMARY | 2024-10-10 10:08 | XMS_ITS | Referral Summary ---
Author Organization [facility] [employer] [facility] Address [address] [place] [address] Care Team Providers Care Argon Tester Name Role Phone Mele Crump MD Primary Care Provider [phone] Source Comments [facility],non-owned Affiliates and Associated Physician Practices is amultiple site organization consisting of ambulatory clinics and hospital sitesin [place], [place], [place] and [place]. This disclosure is being madepursuant to the Care Everywhere program and may not contain all information available regarding this patient. Last updated 18.[facility] Allergies No known active allergies Medications * Be aware that medications may not be up to date on this document. Alwaysverify current medications with the patient. Medication Sig Dispensed Refills Start Date End Date Status LISINOPRIL PO Active METOPROLOL SUCCINATE ER PO Active Pitavastatin Calcium (LIVALO PO) Active aspirin (ASPIRIN) 81 MG tablet Take 81 mg by mouth once daily Active benzonatate (TESSALON) 200 MG capsuleIndications:St rep pharyngitis Take 1 capsule by mouth 3 times daily as needed for Cough 30 capsule 12/14/2018 Active Social History Tobacco Use Types Packs/Day Years Used Date Smoking Tobacco: Never Smokeless Tobacco: Never Alcohol Use Standard Drinks/Week Comments Yes 0 (1 standard drink = 0.6 oz pur e alcohol) occasionally Sex and Gender Information Value Date Recorded Sex Assigned at Not on file Gender Identity Not on file Sexual Orientation Not on file Last Filed Vital Signs Vital Sign Reading Time Taken Comments Blood Pressure 124/80 12/14/2018 10:57 AM CDT Pulse 70 12/14/2018 10:57 AM CDT Temperature 36.7 C (98 F) 12/14/2018 10:57 AM CDT Respiratory Rate 16 12/14/2018 10:57 AM CDT Oxygen Saturation 97% 12/14/2018 10:57 AM CDT Inhaled Oxygen Concentration - - Weight 102.1 kg (225 lb) 12/14/2018 10:57 AM CDT Height 170.2 cm (5' 7 ) 12/14/2018 10:57 AM CDT Body Mass Index 35.24 12/14/2018 10:57 AM CDT Plan of Treatment Not on file Care Teams Argon Tester Relationship Specialty Start Date End Date Mele Crump MD [address] [facility] [address] [place] [address] PCP - General Internal Medicine 12/14/18
--- OUTSIDE RECORDS SUMMARY | 2024-10-10 10:08 | XMS_ITS | Clinical Summary ---
Author Organization [facility] Address [address] [place] [address] Care Team Providers Care Vmware Engineer Name Role Phone Mele Crump MD Primary Care Provider [phone] Allergies Active Allergy Reactions Criticality Noted Date Comments Amlodipine Nausea only Low 01/07/2019 Rosuvastatin Nausea only Low 01/07/2019 Medications aspirin 81 mg enteric coated tabletIndication s:Preventative (Heart) Take 1 tablet (81 mg total) by mouth every morning Active hydroCHLOROthiaz jade (HYDRODIURIL) 25 mg tabletIndication s:hypertension Take 1 tablet (25 mg total) by mouth every morning 2 Active doxycycline (PERIOSTAT) 20 mg tabletIndication s:Acne rosacea Take 1 tablet (20 mg total) by mouth 2 (two) times a day 180 tablet 11 3 Active Additional Information Patient taking differently:20 mg oral 2 times daily,Indications: Rosacea, Informant: Self, Reported on 06/27/2024 metFORMIN XR (GLUCOPHAGE XR) 500 mg 24 hr tabletIndication s:type 2 diabetes mellitus Take 1 tablet (500 mg total) by mouth every morning Active metoprolol XL (TOPROL-XL) 25 mg extended release tabletIndication s:Essential (primary) hypertension TAKE 1 TABLET BY MOUTH EVERY DAY IN THE EVENING 90 tablet 1 4 Active lisinopriL (PRINIVIL,ZESTRI L) 40 mg tabletIndication s:hypertension Take 1 tablet (40 mg total) by mouth daily 90 tablet 3 5 Active atorvastatin (LIPITOR) 80 mg tablet Take 1 tablet (80 mg total) by mouth nightly 90 tablet 3 5 Active clopidogreL (PLAVIX) 75 mg tablet TAKE 1 TABLET BY MOUTH EVERY DAY 90 tablet 1 5 Active Active Problems Problem Noted Date Diagnosed Date Polyp, sigmoid colon 06/12/2024 Adenomatous polyp of sigmoid colon 05/09/2024 Choledocholithiasis 04/02/2024 Calculus of gallbladder with out cholecystitis without obstruction 01/09/2024 Allergic rhinitis 01/07/2019 Benign essential hypertension 01/07/2019 Gastroesophageal reflux disease 01/07/2019 Hyperglycemia 01/07/2019 Obesity 01/07/2019 Immunizations Immunization Administration Dates Next Due Influenza, Quadrivalent, Split, Intramuscular Influenza, Trivalent, IM (MDV) 08/11/2016 Surgical History Surgery Date Site/Laterality Comments ROTATOR CUFF REPAIR Right and Left different times COLONOSCOPY CARDIAC CATHETERIZATION 08/07/2023 - 09/06/2023 CHOLECYSTECTOMY 04/02/2024 Medical History Medical History Date Comments Sleep apnea Hypertension Coronary artery disease Family History Medical History Relation Name Comments Diabetes Father Heart disease Father Diabetes Sister Anesthesia problems Neg Hx Malig Hyperthermia Neg Hx Pseudochol deficiency Neg Hx Relation Name Status Comments Father Sister Social History Tobacco Use Types Packs/Day Years Used Date Smoking Tobacco: Never Passive Smoke Exposure: Never Smokeless Tobacco: Never Tobacco Cessation:Counseling Given: Not Answered AUDIT-C Answer Date Recorded Q1: How often do you have a drink containing alc ohol? Monthly or less 06/27/2024 Q2: How many drinks containi ng alcohol do you have on a typical day when you are drinking? 1 or 2 06/27/2024 Q3: How often do you have si x or more drinks on one occasion? Never 06/27/2024 Personal Safety Answer Date Recorded Have you ever been in or are you currently in a harmful physical or emotional relationship or is someone making you feel afraid or unsafe? Denies 06/27/2024 Sex and Gender Information Value Date Recorded Sex Assigned at Not on file Legal Sex Male 10:22 AM AML ANALYST Gender Identity Not on file Sexual Orientation Not on file Obstetrics History Last Filed Vital Signs Vital Sign Reading Time Taken Comments Blood Pressure 118/77 06/27/2024 12:00 PM AML ANALYST Pulse 66 06/27/2024 12:00 PM AML ANALYST Temperature 36.5 C (97.7 F) 06/27/2024 11:45 AM AML ANALYST Respiratory Rate 18 06/27/2024 12:00 PM AML ANALYST Oxygen Saturation 97% 06/27/2024 12:00 PM AML ANALYST Inhaled Oxygen Concentration - - Weight 98.9 kg (218 lb) 06/27/2024 10:41 AM AML ANALYST Height 170.2 cm (5' 7 ) 06/27/2024 10:41 AM AML ANALYST Body Mass Index 34.14 06/27/2024 10:41 AM AML ANALYST Plan of Treatment Health Maintenance Due Date Last Done Comments Colon Cancer Screening-Colonoscopy 1955 Depression Screening 1955 Hepatitis C Screening 1955 Prostate Cancer Screening-PSA 1957 DTaP/Tdap/Td Vaccine (1 - Tdap) 1968 Hepatitis B Screening 12/27/1975 Pneumococcal vaccine 65+ (1 of 2 - PCV) 1976 Well Visit 65+ 2022 Zoster Vaccine (2 of 2) 08/31/2023 07/06/2023 Covid-19 Vaccine (4 - 2023-2 5 season) 2024 07/14/2021, 11/15/2020, 10/20/2020 Influenza Vaccine (#1) 2024 3, 07/14/2022, 07/14/2021, Additional history exists Fall Risk Assessment 06/27/2025 06/27/2024 Abdominal Aortic Aneurysm (A AA) Screen Completed 09/04/2023, 07/21/2023, 06/18/2023, Additional history exists Colon Cancer Screening-CT Colonography Discontinued 06/27/2024 Colon Cancer Screening-DNA Stool Discontinued 06/27/20 Colon Cancer Screening-FIT Discontinued 06/27/2024, Colon Cancer Screening-Sigmoidoscopy Discontinued 06/27/2024 Procedures Procedure Name Priority Date/Time Associated Diagnosis Comments FLEXIBLE SIGMOIDOSCOPY 11:[address] ABDOMEN W WO CONTRAST Routine 07/27/2018 12:00 AM AML ANALYST from Last 3 Months or Most Recently Relevant to Health Maintenance Results * Flexible Sigmoidoscopy (06/27/2024 11:16 AM AML ANALYST) Anatomical Region Laterality Modality Other Narrative Procedure Note Andres Gauthier MD - 06/27/2024 11:16 AM CST [facility] Patient Name: Nena Dietrich Procedure Date: 06/27/2024 11:16AM Date of : 1955 Admit Type: Outpatient Age: 68 Gender: Male Attending MD: Andres Gauthier M.D. Room: [facility] ENDOSCOPY ROOM 02 Note Status: Finalized Procedure: Flexible Sigmoidoscopy Indications: For therapy of adenomatous polyps in the colon Referring MD: Sanchez Casanova M.D. Providers: Andres Gauthier M.D. Medicines: Propofol per Anesthesia Complications: No immediate complications. Estimated blood loss: Minimal. Estimated Blood Loss: Estimated blood loss: none. Procedure: The benefits, risks, and alternatives to theprocedure and sedation were discussed and informed consentwas obtained. The [id number] was introduced through the anus and advanced to the the descending colon. The flexible sigmoidoscopy was accomplished without difficulty. The patient tolerated the procedure well. The quality of the bowelpreparation was inadequate. Findings: Semi-solid stool was found in the sigmoid colon, interfering with visualization. Impression: - Preparation of the colon was inadequate. - Stool in the sigmoid colon. - No specimens collected. Recommendation: - Perform a colonoscopy at appointment to bescheduled after a full bowel prep. Attending Participation: I personally performed the entire procedure. Electronically signed by Dr.Matthew Abrahan M.D. Andres Gauthier M.D. 06/27/2024 11:43:38 AM . Number of Addenda: 0 Note Initiated On: 06/27/2024 11:16 AM Recognized by the [employer] for promoting quality in endoscopy Andres Gauthier MD ENDOSCOPY PROCEDURES Final R esult * CT Abdomen W WO Contrast (07/27/2018 12:00 AM AML ANALYST) Anatomical Region Laterality Modality Body N/A Computed Tomogra phy 07/27/2018 Impressions 07/28/2018 4:44 PM AML ANALYST 1.No definite enhancing renal mass. 2.There is a 4 mm low-attenuation lesion in the lower pole of the right kidney which is too small to accurately characterize but may represent a cyst. If this is a small angiomyolipoma, it may correspond to the abnormality on the recent ultrasound. The other possibility would be prominent sinus fat causing the lesion on the ultrasound. No renal calculi or parenchymal calcification. Follow-up renal ultrasound in 1 year is recommended. 3.Hepatic steatosis. 4.Cholelithiasis. THIS IS AN ELECTRONICALLY VERIFIED FINAL REPORT 07/28/2018 4:41 PM - Electronically signed by Devyn Geller M.D. LB T: Report ID: [id number] Reading Location: [id number] [EOD] Narrative 07/28/2018 4:44 PM AML ANALYST EXAM DESCRIPTION: CT Abd W WO IV Contrast REASON FOR STUDY: Right renal mass discovered on ultrasound 07/16/2018. TECHNIQUE: CT scan of the abdomen performed without and with intravenous and without oral contrast using helical scanning technique with dynamic intravenous contrast injection. Reconstructed coronal and sagittal MPR images reviewed. All images stored on PACS. Automated exposure control was used as a dose optimization technique for this examination. CONTRAST TYPE/DOSE: 100 mL of Optiray 350contrast were intravenously injected at the left antecubital vein. No adverse reaction reported. COMPARISON: Right upper quadrant ultrasound 07/16/2018 FINDINGS: LOWER CHEST: No significant pulmonary abnormalities. No pleural effusion. Elevation of the right hemidiaphragm. LIVER: Diffusely decreased hepatic parenchymal attenuation. No focal lesions identified. GALLBLADDER: Calcified gallstone within the gallbladder. No pericholecystic inflammatory change. BILE DUCTS: No intrahepatic or extrahepatic ductal dilatation. SPLEEN: Normal size. No focal lesions. PANCREAS: No identified cystic or solid masses. No significant calcifications. No adjacent inflammation or peripancreatic fluid collections. Pancreatic duct not dilated. ADRENALS: Normal. KIDNEYS/URINARY TRACT: No calculus identified. No proximal hydroureter. There is a low-attenuation 4 mm lesion in the lower pole of the right kidney which is too small to accurately characterize but likely represents a cyst and is unchanged from prior exam. No abnormality of the proximal ureters. No hydronephrosis. No enhancing renal mass. GI: No dilated bowel loops. No obvious wall thickening. Normal appendix. No significant diverticular disease. Small 1 cm duodenal diverticulum at the proximal 3rd portion. PERITONEUM: No ascites or free air. RETROPERITONEUM: No adenopathy. VASCULATURE:No abdominal aortic aneurysm. MUSCULOSKELETAL: Mild thoracolumbar spondylosis. OTHER: No other significant abnormality. Procedure Note Provider, MD Doroteo - 12/23/2020 EXAM DESCRIPTION: CT Abd W WO IV Contrast REASON FOR STUDY: Right renal mass discovered on ultrasound 07/16/2018. TECHNIQUE: CT scan of the abdomen performed without and with intravenousand without oral contrast using helical scanning technique with dynamic intravenous contrast injection. Reconstructed coronal and sagittal MPRimages reviewed. All images stored on PACS. Automated exposure control was usedas a dose optimization technique for this examination. CONTRAST TYPE/DOSE: 100 mL of Optiray 350contrast were intravenouslyinjected at the left antecubital vein. No adverse reaction reported. COMPARISON: Right upper quadrant ultrasound 07/16/2018 FINDINGS: LOWER CHEST: No significant pulmonary abnormalities. No pleural effusion. Elevation of the right hemidiaphragm. LIVER: Diffusely decreased hepatic parenchymal attenuation. No focallesions identified. GALLBLADDER: Calcified gallstone within the gallbladder. Nopericholecystic inflammatory change. BILE DUCTS: No intrahepatic or extrahepatic ductal dilatation. SPLEEN: Normal size. No focal lesions. PANCREAS: No identified cystic or solid masses. No significantcalcifications. No adjacent inflammation or peripancreatic fluid collections. Pancreaticduct not dilated. ADRENALS: Normal. KIDNEYS/URINARY TRACT: No calculus identified. No proximal hydroureter. There is a low-attenuation 4 mm lesion in the lower pole of the rightkidney which is too small to accurately characterize but likely represents a cystand is unchanged from prior exam. No abnormality of the proximal ureters. No hydronephrosis. No enhancing renal mass. GI: No dilated bowel loops. No obvious wall thickening. Normal appendix.No significant diverticular disease. Small 1 cm duodenal diverticulum at the proximal 3rd portion. PERITONEUM: No ascites or free air. RETROPERITONEUM: No adenopathy. VASCULATURE:No abdominal aortic aneurysm. MUSCULOSKELETAL: Mild thoracolumbar spondylosis. OTHER: No other significant abnormality. IMPRESSION: 1.No definite enhancing renal mass. 2.There is a 4 mm low-attenuation lesion in the lower pole of the rightkidney which is too small to accurately characterize but may represent a cyst.If this is a small angiomyolipoma, it may correspond to the abnormality onthe recent ultrasound. The other possibility would be prominent sinus fatcausing the lesion on the ultrasound. No renal calculi or parenchymalcalcification. Follow-up renal ultrasound in 1 year is recommended. 3.Hepatic steatosis. 4.Cholelithiasis. THIS IS AN ELECTRONICALLY VERIFIED FINAL REPORT 07/28/2018 4:41 PM - Electronically signed by Devyn Geller M.D. LB T: Report ID: [id number] Reading Location: [id number] [EOD] Betzaida Zavala NP IMG CT PROCEDURES F inal Result from Last 3 Months or Most Recently Relevant to Health Maintenance Insurance [employer] COVENTRY HMO/POS [facility] ADVANTRA AETNA [facility] ADVANTRA Advance Directives For more information, please contact: [phone] Documents on File Type Date Recorded Patient Straightening Machine Operator Expl anation ADVANCE DIRECTIVE 04/02/2024 10:27 AM Ilir guid[employer] of Commercial Escrow Officer-Medical * Full Code (Latest Code Status on File) Date Activated Date Inactivated Comments 06/27/2024 11:53 AM 06/27/2024 4:19 PM Care Teams Vmware Engineer Relationship Specialty Start Date End Date Mele Crump MD [address] [facility] [address] [place] [address] PCP - General Internal Medicine 12/05/18
--- OUTSIDE RECORDS SUMMARY | 2024-10-10 10:08 | XMS_ITS | Clinical Summary ---
Author Organization [facility] Address [address] [place] [address] Care Team Providers Care Medicine Technologist Name Role Phone Mele Crump MD Primary Care Provider [phone] Source Comments [facility],non-owned Affiliates and Associated Physician Practices is amultiple site organization consisting of ambulatory clinics and hospital sitesin [place], [place] and [place]. This disclosure is being madepursuant to the Care Everywhere program and may not contain all information available regarding this patient. Last updated 18.[facility] Allergies No known active allergies Medications * [...] needed for Cough 30 capsule 12/14/2018 Active Family History Medical History Relation Name Comments CAD (Coronary Artery Disease) Father CABG x5 Diabetes - Type 2 Father Relation Name Status Comments Father Social History Tobacco Use Types Packs/Day Years [...] 12/14/2018 10:57 AM CDT Plan of Treatment Health Maintenance Due Date Last Done Comments COLOGUARD (AGES 45-75) - COL ON CA SCREENING 1957 COLON MONITORING 1955 COLONOSCOPY - COLON CA SCREENING 1957 CT COLONOGRAPHY - COLON CA SCREENING 1955 Colorectal Cancer Screening 1955 FIT - COLON CA SCREENING 1957 FLEX SIG - COLON CA SCREENING 1957 HEPATITIS C SCREENING 12/22/1975 DTAP/TDAP/TD VACCINES (1 - Tdap) 1976 PNEUMOCOCCAL VACCINE 50+ (1 of 1 - PCV) 12/27/2007 ZOSTER VACCINE (1 of 2) 12/27/2007 SCREENING FOR DIABETES 12/14/2018 COVID-19 VACCINE ( - 2023-2 5 season) 2024 INFLUENZA VACCINE (#1) 2024 DEPRESSION SCREENING 08/07/2024 Respiratory Syncytial Virus (RSV) Vaccine Pt: or over 60 yrs (1 - 1-dose 75+ series) 2032 HEPATITIS B VACCINE Aged Out No longe r eligible based on patient's age to complete this topic HIB VACCINE Aged Out No longer eligi ble based on patient's age to complete this topic HPV VACCINE Aged Out No longer eligi ble based on patient's age to complete this topic MENINGOCOCCAL (Group B) VACCINE Aged Out No longer eligible based on patient's age to complete this topic MENINGOCOCCAL VACCINE Aged Out No polly lisbeth eligible based on patient's age to complete this topic Care Teams Medicine Technologist Relationship Specialty Start Date End Date Mele Crump MD [facility] [address] [place] [address] PCP - General Internal Medicine 12/14/18
--- OUTSIDE RECORDS SUMMARY | 2024-10-10 10:08 | XMS_ITS | Clinical Summary ---
Author Organization [facility] Address [address] [place] [address] Care Team Providers Care Urology Physician Name Role Phone Mele Crump MD Primary Care Provider [phone] Allergies No known active allergies Medications Doxycycline Hyclate 20 MG Tab Take 20 mg by mouth 2 (two) times daily. 07/17/20 23 Active metFORMIN ER (GLUCOPHAGE-XR) 500 MG 24 hr tablet Take 1 tablet (500 mg total) by mouth daily with breakfast. 08/02/20 23 Active aspirin 81 MG chewable tablet Chew 1 tablet (81 mg total) by mouth daily. Active metoprolol succinate ER (TOPROL-XL) 25 MG 24 hr tabletIndication s:Essential (primary) hypertension take 1 tablet by mouth every day in the evening 90 tablet 1 10/02/19 24 Active atorvastatin (LIPITOR) 80 MG tablet Take 1 tablet (80 mg total) by mouth nightly at bedtime. 30 tablet 05/28/20 24 Active hydroCHLOROthiaz jade (HYDRODIURIL) 25 MG tabletIndication s:Essential (primary) hypertension TAKE 1 TABLET (25 MG TOTAL) BY MOUTH DAILY. 30 tablet 09/19/19 25 Active hydroCHLOROthiaz jade (HYDRODIURIL) 25 MG tabletIndication s:Essential (primary) hypertension Take 1 tablet (25 mg total) by mouth daily. 90 tablet 1 03/18/20 24 025 Discontinued Active Problems Problem Noted Date Diagnosed Date S/P PTCA (percutaneous transluminal coronary ang ioplasty) 01/29/2024 Unstable angina pectoris (CMS/HCC HHS/HCC) 08/15 Herpes zoster 06/26/2023 Atherosclerosis of aorta 06/01/2023 Type 2 diabetes mellitus wit hout complication ([facility]/HCC [facility]/HCC) 05/02/2023 Left upper quadrant pain 05/02/2023 Upper abdominal pain 05/02/2023 COVID-19 01/05/2023 Hepatomegaly 01/05/2023 Impaired glucose tolerance 01/05/2023 Acute purulent bronchitis 12/20/2022 Allergic rhinitis 01/07/2019 Hyperglycemia 01/07/2019 Obesity 01/07/2019 Obstructive sleep apnea of adult 10/17/2018 Dyslipidemia 09/08/2017 Family history of ischemic heart disease 018 Dyspnea on exertion 12/09/2015 Gallstone 12/09/2015 Diverticulitis 12/09/2015 Coronary artery disease invo lving [place] coronary artery of [place] heart without angina pectoris 11/27/2015 Hyperlipidemia 11/27/2015 Asthma ([facility]) 11/26/2015 Overview (08/09/2023): Had Asthma as a child Atypical chest pain 11/26/2015 Benign essential hypertension 11/26/2015 Gastroesophageal reflux disease 11/26/2015 Resolved Problems Problem Noted Date Diagnosed Date Resolved Date Screening for colon cancer 01/18/2024 0 01/22/2024 Screening for colon cancer 01/18/2024 0 02/19/2024 Screening for colon cancer 01/18/2024 0 02/26/2024 Migraine 12/09/2015 09/21/2023 Immunizations Name Administration Dates Next Due Influenza (Generic) 06/02/2020,08/11/2016 Influenza Adult (Generic) 07/06/2023,07/14/2022, 07/14/2021,05/13/2014 Shingrix 07/06/2023 Social History Tobacco Use Types Packs/Day Years Used Date Smoking Tobacco: Never Smokeless Tobacco: Never Tobacco Cessation:Counseling Given: Not Answered Alcohol Use Standard Drinks/Week Comments Not Currently 0 (1 standard drink = 0.6 oz pur e alcohol) PHQ-2 Answer Date Recorded Patient Health Questionnaire-2 Score 0 01/17/2024 Sex and Gender Information Value Date Recorded Sex Assigned at Male 10/24/2023 8:01 AM CDT Legal Sex Male 8:30 PM CDT Gender Identity Male 10/24/2023 8:01 AM CDT Sexual Orientation Straight 10/24/2023 8: 01 AM CDT Last Filed Vital Signs Vital Sign Reading Time Taken Comments Blood Pressure 139/78 03/26/2024 3:31 PM CDT Pulse 72 03/26/2024 3:31 PM CDT Temperature 36.9 C (98.5 F) 03/26/2024 3:31 PM CDT Respiratory Rate 18 02/26/2024 12:06 PM CDT Oxygen Saturation 97% 03/26/2024 3:31 PM CDT Inhaled Oxygen Concentration - - Weight 99.8 kg (220 lb) 03/26/2024 3:31 PM CDT Height 170.2 cm (5' 7 ) 03/26/2024 3:31 PM CDT Body Mass Index 34.46 03/26/2024 3:31 PM CDT Plan of Treatment Health Maintenance Due Date Last Done Comments Kidney Health Evaluation 1955 Pneumococcal Vaccine: 65+ Years (1 of 2 - PCV) 12/27/1963 Diabetes: Retinopathy Eye Exam 12/27/1975 Hepatitis C 12/27/1975 DTaP, Tdap and Td Vaccines (1 - Tdap) 1976 RSV Immunization or 60+ Years (1 - Risk 60-74 years 1-dose series) 2017 Annual Medicare Wellness Visit 2022 Zoster Vaccines (2 of 2) 08/31/2023 07/06/2023 COVID-19 Vaccine (4 - season) 2024 07/14/2021, 11/15/2020, 10/20/2020 ASCVD LDL 05/04/2024 05/04/2023 Lipid Panel 05/04/2024 05/04/2023 Influenza Adult (#1) 2024 07/06/2023, 07/14/2022, 07/14/2021, Additional history exists PHQ-2 (Physician [place]) 08/07/2024 01/17/2024 Hemoglobin A1C 09/21/2024 03/21/2024, 05/04/2023 Colorectal Cancer Screening Colonoscopy (10 Years) 02/25/2034 02/26/2024 Meningococcal B Vaccine Aged Out No l onger eligible based on patient's age to complete this topic Meningococcal Vaccine Aged Out No polly lisbeth eligible based on patient's age to complete this topic RSV Immunizations Under 20 Months Aged Out No longer eligible based on patient's age to complete this topic Medical Devices Implanted Type Area Speed Operator Device Identifier Shelf Expiration Date Model / Serial / Lot Stent Stent Heart Procedures Procedure Name Priority Date/Time Associated Diagnosis Comments LIPID PANEL Routine 05/04/2023 HEMOGLOBIN, GLYCOSYLATED Routine 05/04/2023 from Last 3 Months or Most Recently Relevant to Health Maintenance Results * HEMOGLOBIN, GLYCOSYLATED (05/04/2023) HGB A1C 6.4 % us Default History Genericprovider LABORATORY Final Result * LIPID PANEL (05/04/2023) CHOLESTEROL 105 TRIGLYCERIDES 79 HDL 39 LDL (CALCULATED) 50 us Default History Genericprovider LABORATORY Final Result from Last 3 Months or Most Recently Relevant to Health Maintenance Insurance [employer] Advance Directives * Full Code (Latest Code Status on File) Date Activated Date Inactivated Comments 08/31/2023 1:56 PM 08/31/2023 7:09 PM Care Teams Urology Physician Relationship Specialty Start Date End Date Mele Crump MD [address] [facility] [address] [place] [address] PCP - General INTERNAL MEDICINE 06/07/23
--- OUTSIDE RECORDS SUMMARY | 2024-10-10 10:08 | XMS_ITS | Patient Health Summary ---
Author Organization [facility] Address [address] [place] [address] Care Team Providers Care Wire Welder Name Role Phone Mele Crump MD Primary Care Provider [phone] Note from [facility],non-owned Affiliates and Associated Physician Practices is amultiple site organization consisting of ambulatory clinics and hospital sitesin [place], [place], [place] and [place]. This disclosure is being madepursuant to the Care Everywhere program and may not contain all information available regarding this patient. Last updated 18.[facility] Allergies No known active allergies Medications * Be aware that medications may not be up to date on this document. Alwaysverify current medications with the patient. * LISINOPRIL PO * METOPROLOL SUCCINATE ER PO * Pitavastatin Calcium (LIVALO PO) * aspirin (ASPIRIN) 81 MG tablet Take 81 mg by mouth once daily * benzonatate (TESSALON) 200 MG capsule(Started 12/14/2018) Take 1 capsule by mouth 3 times daily as needed for Cough Social History Tobacco Use Types Packs/Day Years [...] Mass Index 35.24 12/14/2018 10:57 AM CDT Procedures * STREP A SCREEN - POINT OF CARE (AMB) STL(Performed 12/14/2018) Performed for Strep pharyngitis Results * (ABNORMAL) STREP A SCREEN (12/14/2018 11:11 AM CDT) Strep A Rapid POCT Positive(A) Negative Strep A Internal Control Present Lot # [id number] Expiration Date 06/06/2020 Throat ENTIRE THROAT (SURFACE REGION OF NECK) / Unknown 12/14/2018 11:11 AM CDT Nataly Roberts SUPPORT MANAGER-DEPUTY BRAND INSPECTOR LAB - POIN T OF CARE ORDERABLES Care Teams Wire Welder Relationship Specialty Start Date End Date Mele Crump MD [address] [place] [address] [address] [place] [address] PCP - General Internal Medicine 12/14/18
--- OUTSIDE RECORDS SUMMARY | 2024-10-10 10:08 | XMS_ITS | Referral Summary ---
Author Organization [facility] Address [address] [place] [address] Care Team Providers Care Senior Security Analyst Name Role Phone Mele Crump MD Primary Care Provider [phone] Allergies Active Allergy Reactions Criticality Noted Date [...] Split, Intramuscular Influenza, Trivalent, IM (MDV) 08/11/2016 Social History Tobacco Use Types Packs/Day Years [...] on file Legal Sex Male 10:22 AM SOLUTION DESIGNER Gender Identity Not on file Sexual Orientation Not on file Last Filed Vital Signs Vital Sign Reading Time Taken Comments Blood Pressure 118/77 06/27/2024 12:00 PM SOLUTION DESIGNER Pulse 66 06/27/2024 12:00 PM SOLUTION DESIGNER Temperature 36.5 C (97.7 F) 06/27/2024 11:45 AM SOLUTION DESIGNER Respiratory Rate 18 06/27/2024 12:00 PM SOLUTION DESIGNER Oxygen Saturation 97% 06/27/2024 12:00 PM SOLUTION DESIGNER Inhaled Oxygen Concentration - - Weight 98.9 kg (218 lb) 06/27/2024 10:41 AM SOLUTION DESIGNER Height 170.2 cm (5' 7 ) 06/27/2024 10:41 AM SOLUTION DESIGNER Body Mass Index 34.14 06/27/2024 10:41 AM SOLUTION DESIGNER Plan of Treatment Not on file Procedures Procedure Name Priority Date/Time Associated Diagnosis Comments FLEXIBLE SIGMOIDOSCOPY 11:[address] ABDOMEN W WO CONTRAST Routine 07/27/2018 12:00 AM SOLUTION DESIGNER from Last 3 Months or Most Recently Relevant to Health Maintenance Results * Flexible Sigmoidoscopy (06/27/2024 11:16 AM SOLUTION DESIGNER) Anatomical Region Laterality Modality Other Narrative Procedure Note Andres Gauthier MD - 06/27/2024 11:16 AM CST [facility] Patient Name: Nena Dietrich Procedure Date: 06/27/2024 11:16AM Date of : 1955 Admit Type: Outpatient Age: 68 Gender: Male Attending MD: Andres Gauthier M.D. Room: [facility] ENDOSCOPY ROOM 02 Note Status: [...] were discussed and informed consentwas obtained. The [id number] was introduced through the anus and advanced [...] On: 06/27/2024 11:16 AM Recognized by the [employer] for promoting quality in endoscopy us Andres Gauthier MD ENDOSCOPY PROCEDURES Final R esult * CT Abdomen W WO Contrast (07/27/2018 12:00 AM SOLUTION DESIGNER) Anatomical Region Laterality Modality Body N/A Computed Tomogra phy 07/27/2018 Impressions 07/28/2018 4:44 PM SOLUTION DESIGNER 1.No definite enhancing renal mass. 2.There is [...] 4:41 PM - Electronically signed by Devyn ZEE T: Report ID: [id number] Reading Location: [id number] [EOD] Narrative 07/28/2018 4:44 PM SOLUTION DESIGNER EXAM DESCRIPTION: CT Abd W WO IV [...] Devyn Geller M.D. LB T: Report ID: [id number] Reading Location: [id number] [EOD] Betzaida Zavala READING TEACHER IMG CT PROCEDURES F inal Result from Last 3 Months or Most Recently Relevant to Health Maintenance Insurance [employer] [place] HMO/POS AETNA [facility] ADVANTRA AET[employer] M[employer] ADVANTRA Advance Directives For more information, please contact: [phone] Documents on File Type Date Recorded Patient Supervising Architect Expl anation ADVANCE DIRECTIVE 04/02/2024 10:27 AM Ilir meza of [employer] Machine Tool Operator-Medical * Full Code (Latest Code Status on File) Date Activated Date Inactivated Comments 06/27/2024 11:53 AM 06/27/2024 4:19 PM Care Teams Senior Security Analyst Relationship Specialty Start Date End Date Mele Crump MD [address] [facility] [address] [place] [address] PCP - General Internal Medicine 12/05/18
[2024-10-10 10:25] LABS: Cholesterol 86 mg/dL (0-200); HDL Direct 30 mg/dL; Triglycerides 74 mg/dL (<150)
[2024-10-10 10:36] LABS: LDL Cholesterol Direct 31 mg/dL
[2024-10-12 18:14] LABS: Lipoprotein A 70 nmol/L
== END 2024-10-10 09:09 | disposition home or self-care (01) ==
LOC: ANHLAB 09:17
PROVIDERS: PCP Internal Medicine; Visit Provider Internal Medicine Cardiovascular Disease
DX: E78.5 Hyperlipidemia, unspecified (principal); I25.10 Atherosclerotic heart disease of native coronary artery without angina pectoris
CPT/HCPCS: 36415; 80061; 83695